=== PATIENT | female | born 1985 | race Caucasian/White ===

== ENCOUNTER → 2023-10-28 08:38 | Outpatient (REF) | payer BC, SELFPAY | LOC: RAD 08:38 | PROVIDERS: ATTENDING PHYSICIAN Internal Medicine Gastroenterology; FAMILY PHYSICIAN Family Medicine | DX: R10.12 Left upper quadrant pain (principal) | CPT/HCPCS: 76700 ==

== ENCOUNTER 2023-12-18 21:14 | Emergency (ER) | payer BC, SELFPAY ==
[2023-12-18 21:20] VITALS: BP 180/107
[2023-12-18 21:56] LABS: % Basophils 0.5 % (0-2); % Eosinophils 0.8 % (0-6); % Immature Granulocytes 0.7 % (0-0.5); % Lymphocytes 22.3 % (20.5-51.1); % Neutrophils 68.7 % (42.2-75.2); Absolute Basophils 0.1 10^3/uL (0-0.2); Absolute Eosinophils 0.1 10^3/uL (0-0.7); Absolute Immature Granulocytes 0.1 10^3/uL (0-0.05); Absolute Lymphocytes 3.7 10^3/uL (1.2-3.4); Absolute Monocytes 1.1 10^3/uL (0.1-0.6); Absolute Neutrophils 11.3 10^3/uL (1.4-6.5); Hemoglobin 13.1 g/dL (12.0-16.0); Mean Corp Hgb Conc. 33.6 g/dL (33.0-37.0); Mean Corpuscular Hgb 25.8 pg (27.0-31.0); Mean Corpuscular Volume 76.8 fL (81.0-99.0); Mean Platelet Volume 8.8 fL (7.4-10.4); Nucleated Red Blood Cells % 0 %; Platelet Count 367 10^3/uL (130-400); Red Blood Cell Count 5.08 10^6/uL (4.20-5.40); Red Cell Dist. Width 16.4 % (11.5-14.5); White Blood Cell Count 16.4 10^3/uL (4.8-10.8)
[2023-12-18 22:10] LABS: ALT (SGPT) 24 U/L (0-35); AST (SGOT) 23 U/L (14-36); Albumin 4.8 g/dl (3.5-5.0); Alkaline Phosphatase 89 U/L (38-126); Blood Urea Nitrogen 12 mg/dl (7-17); Calcium 10.2 mg/dl (8.4-10.2); Carbon Dioxide 24 mmol/L (22-30); Chloride 99 mmol/L (98-107); Glucose 122 mg/dl (70-99); Potassium 3.4 mmol/L (3.5-5.1); Sodium 137 mmol/L (135-145); Total Bilirubin 0.4 mg/dl (0.2-1.3); Total Protein 8.2 g/dl (6.3-8.2); eGFR > 60.00
[2023-12-18 22:20] LABS: Troponin I < 0.012 ng/ml
[2023-12-18 23:39] VITALS: BP 138/96
[2023-12-19] VITALS: BP 151/91
--- NOTE | 2023-12-19 00:08 | ED.GENMED ---
History of Present Illness
General
Chief Complaint: Blood Pressure Problem
Source: patient and family
Exam Limitations: none
Time Seen by Provider: 12/18/23 23:48
Nursing documentation reviewed up to this point in time: agreed with
Travel History
Have you had any contact with someone who has COVID-19?: No
Do you have any symptoms of coronavirus? Fever > 100 degrees, chills, cough, shortness of breath, sore throat, loss of taste or smell, muscle aches, or headache?: No
History of Present Illness
History of Present Illness:
Pleasant 38-year-old female that presents with hypertension. She follows with Dr. Burrell, cardiology and was recently started on chlorthalidone 1 week ago. Initially she was on 12.5 mg but she was told to increase the dose to the full 25 mg daily.
This morning she awakened with palpitations and a headache. She went to [facility] in the emergency department and states that she had a full workup including normal chest x-ray, normal troponin, normal D-dimer, and normal proBNP. She
states that she was given labetalol and discharged home. She got home and stated that her headache and hypertension symptoms have returned so she came to [facility]. Patient was able to show the testing results on her portal on her
iPhone. Upon arrival, patient states that her symptoms started to resolve. Patient denies chest pain or shortness of breath. Patient also reports that her white blood cell count has been chronically elevated.
Phy Exam
General Physical Exam
General Presentation: well appearing and no apparent distress
General Skin: warm and dry
General Habitus: normal
General Mental: alert
General Hydration: appears well hydrated
ENT Exam
ENT Exam: EOMI, pharynx normal, neck supple and normocephalic
Eye Exam
Eye Exam: PERRL, cornea clear and conjunctiva normal
Cardiovascular Exam
Cardiovascular Exam: regular rate/rhythm, no edema, no murmur and normal peripheral pulses
Pulmonary Exam
Pulmonary Exam: lungs clear, no respiratory distress, no rales, no crackles, no rhonchi, no stridor, no wheezing and no cough
Gastrointestinal Exam
Gastrointestinal Exam: normal bowel sounds, non tender, soft, no organomegaly, no pulsatile mass and non distended
Neurological Exam
Neurological Exam: alert, oriented x3, no motor deficits and speech normal
Musculoskeletal Exam
Musculoskeletal Exam: full ROM and no edema
Skin Exam
Skin Exam: normal color, warm/dry, no rash and no petechia
Psychiatric Exam
Psychiatric Exam: normal mood/affect
Course
Orders/Labs/Results
Orders:
Orders
12/18/23 21:31
Electrocardiogram (*1) Urgent
Reason for Study: Chest Pain
Other Reason for Exam: hypertension
Cardiology Consult: Carley Burrell
Chest [CR Chest - 2 Views ] Urgent
Comment:
Reason For Exam: chest pain cough
12/18/23 21:32
EKG- Treatment ONCE
12/18/23 21:51
Complete Blood Count/With Diff Urgent
Comprehensive Metabolic Panel Urgent
Troponin I Urgent
12/19/23 00:32
Urinalysis Reflex To Culture Urgent
Date Specimen was Collected: 12/19/23
Time Specimen was Collected: 00:30
Urine Microscopic Reflex Cult Urgent
Urine Culture Urgent
RAVI Source: U
Specimen Description:
Date Specimen was Collected: 12/19/23
Time Specimen was Collected: 00:30
Abnormal Lab Results
12/18/23 12/19/23
21:51 00:32
WBC 16.4 H 10^3/uL
(4.8-10.8)
MCV 76.8 L fL
(81.0-99.0)
MCH 25.8 L pg
(27.0-31.0)
RDW 16.4 H %
(11.5-14.5)
Abs Immat Gran (auto) 0.1 H 10^3/uL
(0-0.05)
Absolute Neuts (auto) 11.3 H 10^3/uL
(1.4-6.5)
Absolute Lymphs (auto) 3.7 H 10^3/uL
(1.2-3.4)
Absolute Monos (auto) 1.1 H 10^3/uL
(0.1-0.6)
Immature Gran % 0.7 H %
(0-0.5)
Potassium 3.4 L mmol/L
(3.5-5.1)
Creatinine 0.4 L mg/dL
(0.6-1.0)
Glucose 122 H mg/dl
(70-99)
Ur Occult Blood Reflex 4+ A
(Negative)
Leukocyte Esterase Rfl 1+ A
(Negative)
Urine RBC >100 A /HPF
(0-2)
Urine Albumin (Reflex) 1+ A
(Neg - Trace)
12/18/23 21:51
12/18/23 21:51
Vital Signs
Initial and Last Documented VS:
Initial Vital Signs
Temp Pulse Resp BP Pulse Ox
98.1 F 107 20 180/107 99
12/18/23 21:20 12/18/23 21:20 12/18/23 21:20 12/18/23 21:20 12/18/23 21:20
Last Documented Vital Signs
Temp Pulse Resp BP Pulse Ox
98.1 F 87 12 152/92 99
12/18/23 21:20 12/19/23 01:15 12/19/23 01:15 12/19/23 01:00 12/18/23 21:20
*Radiology
Radiology exam reviewed: radiology read reviewed (Reviewed from rin Dejesus. Chest x-ray taken here is negative)
*Pulse Oximetry
Patient hypoxic: no
*Critical Care Note
Total Time (30-74mins, 75-104mins- exclusive of procedures): Not Applicable
Update Note
Update Note:
Patient states that she is feeling better and wishes to be discharged. She will follow-up with Dr. Giang, cardiology tomorrow. She will continue her cardiac meds.
ED Attending Note
-
Portions of this chart may have been created with voice recognition software.� Occasional wrong word or��sound alike� substitutions may have occurred due to the inherent limitations of voice recognition software.
Discharge Plan
Departure
Patient Disposition: Home (Routine Discharge)
Date of Disposition: 12/19/23
Time of Disposition: 01:18
Patient with high blood pressure during this ER visit?: Yes
Condition: Good
Discharge Problem:
Hypertension
Instructions: High Blood Pressure (DC), BLOOD PRESSURE
Referrals:
Marj Foster MD [Family Provider] -
Carley Burrell MD [Active] -
Activity Restrictions/Additional Instructions:
It was a pleasure meeting you and taking part in your care. We hope for your continued healing and wellness.
Please read discharge instructions in their entirety. However, they are for general education and may not describe your exact diagnosis at discharge. Information on your ER visit and medical conditions were discussed with you along with appropriate
follow up information...
If indicated, please take your medications as instructed and indicated on discharge paperwork.
Please schedule a follow up appointment as directed. Call to schedule an appointment
Please return to the emergency department with ANY change in, persisting, or worsening of symptoms. If any of your symptoms do not improve, or persist, or become more severe within 6-12 hours, please return to the emergency department for further
care.
Please return to the emergency department if you develop a headache, neck pain/stiffness, fever greater than 100.4F, chest pain, shortness of breath, persistent nausea, vomiting, slurred speech, difficulty walking, numbness/tingling, weakness, signs
of infection or any other symptoms that are worrisome to you.
If you have any questions or concerns please do not hesitate to call the Hospital at or E-mail me directly at [email or web address]
Interventions
Interventions:
*Risk Screen - Suicide Last Done: 12/18/23 21:20
*General Assessment Last Done: 12/18/23 21:20
ED- Fall Risk Assessment Last Done: 12/18/23 21:20
*ED COVID-19 Vaccine History Last Done: 12/18/23 21:20
ED- Cardiac Assessment Last Done: 12/19/23 00:04
ED- Neurological Assessment Last Done: 12/19/23 00:04
ED- Pulmonary Assessment Last Done: 12/19/23 00:04
Discharge Date and Time
Print Language: CONGOLESE
[2023-12-19 00:30] VITALS: BP 145/83
[2023-12-19 00:47] LABS: Urine Albumin 1+ (Neg - Trace); Urine Bilirubin Negative (Negative); Urine Color Red; Urine Glucose Negative (Negative); Urine Ketone Negative (Negative); Urine Leukocyte 1+ (Negative); Urine Nitrite Negative (Negative); Urine Occult Blood 4+ (Negative); Urine Urobilinogen Negative (Neg - 1+)
[2023-12-19 00:49] LABS: Urine Character Cloudy (Clear)
[2023-12-19 01:00] VITALS: BP 152/92
[2023-12-19 01:11] LABS: Urine Amorphous Seen; Urine Red Blood Cell >100 /HPF (0-2); Urine Squamous Cell >30 /LPF (Few)
== END 2023-12-19 01:33 | disposition home or self-care (01) ==
LOC: EMR 21:14
PROVIDERS: Emergency Medicine; EMERGENCY PHYSICIAN Student in an Organized Health Care Education/Training Program; FAMILY PHYSICIAN Family Medicine
DX: I10 Essential (primary) hypertension (principal)
CPT/HCPCS: 99285; 71046; 80053; 81003; 81015; 84484; 85025; 87086; 93005

== ENCOUNTER 2023-12-22 11:04 | Emergency (ER) | payer BC, SELFPAY ==
[2023-12-22 11:11] VITALS: BP 149/105
[2023-12-22 11:30] LABS: % Basophils 0.6 % (0-2); % Eosinophils 0.7 % (0-6); % Immature Granulocytes 0.6 % (0-0.5); % Lymphocytes 21.1 % (20.5-51.1); % Monocytes 7.9 % (1.7-9.3); % Neutrophils 69.1 % (42.2-75.2); Absolute Basophils 0.1 10^3/uL (0-0.2); Absolute Eosinophils 0.1 10^3/uL (0-0.7); Absolute Immature Granulocytes 0.1 10^3/uL (0-0.05); Absolute Lymphocytes 2.7 10^3/uL (1.2-3.4); Absolute Neutrophils 8.7 10^3/uL (1.4-6.5); Hematocrit 41.3 % (37.0-47.0); Mean Corp Hgb Conc. 33.9 g/dL (33.0-37.0); Mean Corpuscular Hgb 25.8 pg (27.0-31.0); Mean Corpuscular Volume 76.1 fL (81.0-99.0); Mean Platelet Volume 9.1 fL (7.4-10.4); Nucleated Red Blood Cells % 0 %; Platelet Count 355 10^3/uL (130-400); Red Blood Cell Count 5.43 10^6/uL (4.20-5.40); Red Cell Dist. Width 15.6 % (11.5-14.5); White Blood Cell Count 12.6 10^3/uL (4.8-10.8)
[2023-12-22 11:41] LABS: HCG, Serum Qualitative Screen Negative
--- NOTE | 2023-12-22 12:50 | ED.GENMED ---
History of Present Illness
<Kimberley Quijano PA-C - Last Filed: 12/25/23 00:05>
General
Chief Complaint: Abdominal Symptoms
Source: patient
Exam Limitations: none
Time Seen by Provider: 12/22/23 12:07
Nursing documentation reviewed up to this point in time: agreed with
Travel History
Have you had any contact with someone who has COVID-19?: No
Do you have any symptoms of coronavirus? Fever > 100 degrees, chills, cough, shortness of breath, sore throat, loss of taste or smell, muscle aches, or headache?: No
History of Present Illness
History of Present Illness:
Patient is a 38-year-old female with history hypertension presenting for evaluation of upper abdominal pain. Patient states symptoms started about 4 to 5 days ago and have been essentially constant since. She endorses associated nausea, anorexia,
diarrhea. No vomiting, fever, chills. Pain is located in the epigastric abdominal region/right upper quadrant with possibly some radiation to the back. Patient states pain is worse after eating and with movement. Patient denies any urinary
symptoms, chest pain, shortness of breath.
Patient has been diagnosed with a dental infection by her dentist instructed to start a course of clindamycin today. She is scheduled to have dental work done in the next few weeks. She has been having headaches over the past few weeks which she
has been attributing to dental infection
Patient was recently seen in our emergency department last week for elevated blood pressure readings. She did recently start chlorthalidone.
Phy Exam
<Kimberley Quijano PA-C - Last Filed: 12/25/23 00:05>
Physical Exam
Physical Exam:
General: Anxious appearing, nontoxic appearing
Vitals: Hypertensive, tachycardic, otherwise vital signs stable; afebrile
HEENT: Atraumatic, normocephalic; protecting airway, uvula midline
Neck: appears supple, no meningeal signs
CV: Regular rate and rhythm, heart sounds normal, no evidence of cyanosis
Resp: No evidence of respiratory distress, lungs clear bilaterally
Abd: Soft, tender in epigastrium right upper quadrant without rebound or guarding, non-distended; no CVA tenderness
Extremities: No deformities, no evidence of cyanosis or edema
Neuro: alert and oriented x 3; grossly intact
Psych: Anxious, somewhat tearful
Skin: Intact no rashes
Course
<Kimberley Quijano PA-C - Last Filed: 12/25/23 00:05>
Orders/Labs/Results
Orders:
Orders
12/22/23 11:13
Electrocardiogram (*1) Urgent
Reason for Study: Abdominal Pain
EKG- Treatment ONCE
Test Result ONCE
12/22/23 11:20
Complete Blood Count/With Diff Urgent
Comprehensive Metabolic Panel Urgent
HCG, Serum Qualitative Screen Urgent
Lipase Urgent
12/22/23 12:44
0.9% Sodium Chloride 1000 ml [Nss] 1,000 ml IV BOLUS
US Abdomen Complete/Upper Urgent
Comment:
Reason For Exam: RUQ/epigastric abdominal pain, nausea
12/22/23 14:01
Ketorolac [Toradol] 15 mg IV NOW STA
12/22/23 15:12
Ondansetron Injectable [Zofran] 4 mg IV NOW STA
12/22/23 17:12
Acetaminophen [Tylenol] 650 mg PO NOW STA
Abnormal Lab Results
12/22/23
11:20
WBC 12.6 H 10^3/uL
(4.8-10.8)
RBC 5.43 H 10^6/uL
(4.20-5.40)
MCV 76.1 L fL
(81.0-99.0)
MCH 25.8 L pg
(27.0-31.0)
RDW 15.6 H %
(11.5-14.5)
Abs Immat Gran (auto) 0.1 H 10^3/uL
(0-0.05)
Absolute Neuts (auto) 8.7 H 10^3/uL
(1.4-6.5)
Absolute Monos (auto) 1.0 H 10^3/uL
(0.1-0.6)
Immature Gran % 0.6 H %
(0-0.5)
BUN 19 H mg/dl
(7-17)
Creatinine 0.5 L mg/dL
(0.6-1.0)
Glucose 120 H mg/dl
(70-99)
Calcium 10.6 H mg/dl
(8.4-10.2)
Albumin 5.1 H g/dl
(3.5-5.0)
12/22/23 11:20
12/22/23 11:20
Vital Signs
Initial and Last Documented VS:
Initial Vital Signs
Temp Pulse Resp BP Pulse Ox
98.7 F 110 16 149/105 100
12/22/23 11:11 12/22/23 11:11 12/22/23 11:11 12/22/23 11:11 12/22/23 11:11
Last Documented Vital Signs
Temp Pulse Resp BP Pulse Ox
98.7 F 96 18 148/79 96
12/22/23 11:11 12/22/23 15:55 12/22/23 15:55 12/22/23 15:55 12/22/23 15:55
Davidlt;Xavier Oleary DO - Last Filed: 12/22/23 20:00>
Orders/Labs/Results
Orders:
Orders
12/22/23 11:13
Electrocardiogram (*1) Urgent
Reason for Study: Abdominal Pain
EKG- Treatment ONCE
Test Result ONCE
12/22/23 11:20
Complete Blood Count/With Diff Urgent
Comprehensive Metabolic Panel Urgent
HCG, Serum Qualitative Screen Urgent
Lipase Urgent
12/22/23 12:44
0.9% Sodium Chloride 1000 ml [Nss] 1,000 ml IV BOLUS
US Abdomen Complete/Upper Urgent
Comment:
Reason For Exam: RUQ/epigastric abdominal pain, nausea
12/22/23 14:01
Ketorolac [Toradol] 15 mg IV NOW STA
12/22/23 15:12
Ondansetron Injectable [Zofran] 4 mg IV NOW STA
12/22/23 17:12
Acetaminophen [Tylenol] 650 mg PO NOW STA
Abnormal Lab Results
12/22/23
11:20
WBC 12.6 H 10^3/uL
(4.8-10.8)
RBC 5.43 H 10^6/uL
(4.20-5.40)
MCV 76.1 L fL
(81.0-99.0)
MCH 25.8 L pg
(27.0-31.0)
RDW 15.6 H %
(11.5-14.5)
Abs Immat Gran (auto) 0.1 H 10^3/uL
(0-0.05)
Absolute Neuts (auto) 8.7 H 10^3/uL
(1.4-6.5)
Absolute Monos (auto) 1.0 H 10^3/uL
(0.1-0.6)
Immature Gran % 0.6 H %
(0-0.5)
BUN 19 H mg/dl
(7-17)
Creatinine 0.5 L mg/dL
(0.6-1.0)
Glucose 120 H mg/dl
(70-99)
Calcium 10.6 H mg/dl
(8.4-10.2)
Albumin 5.1 H g/dl
(3.5-5.0)
12/22/23 11:20
12/22/23 11:20
Vital Signs
Initial and Last Documented VS:
Initial Vital Signs
Temp Pulse Resp BP Pulse Ox
98.7 F 110 16 149/105 100
12/22/23 11:11 12/22/23 11:11 12/22/23 11:11 12/22/23 11:11 12/22/23 11:11
Last Documented Vital Signs
Temp Pulse Resp BP Pulse Ox
98.7 F 96 18 148/79 96
12/22/23 11:11 12/22/23 15:55 12/22/23 15:55 12/22/23 15:55 12/22/23 15:55
<Kimberley Quijano PA-C - Last Filed: 12/25/23 00:05>
MDM/Problems Addressed
Differential Diagnosis Includes:
Not limited to: Cholelithiasis, cholecystitis, choledocholithiasis, pancreatitis, gastritis, GERD, muscular strain
MDM/Problems Addressed:
Patient is a 38 year old female presenting for evaluation of persistent postprandial upper abdominal pain with associated nausea. Patient is scheduled for upper endoscopy next week. Patient has had negative US in the past. Patient mildly
hypertensive and tachycardic -although does appear somewhat anxious. Exam as above. Significant abdominal tenderness in upper abdomen. Labs obtained in triage are without any clinical significant abnormalities, other than mild, nonspecific
leukocytosis. Given persistence / progressive symptoms- will check US to ensure no gallbladder etiology. Toradol for pain, zofran, IVF.
US without any evidence of gallstones or acute gallbladder disease. Patient did have some improvement in pain after Toradol.
Workup here has been unremarkable. Patient is stable. Given scheduled GI follow-up - will discharge with return precautions. Possible that patient has ulcer or gastritis. Will have endoscopy performed outpatient. Patient comfortable with plan. All
questions answered.
Chronic conditions affecting care:
HTN, anxiety, Diabetes
Acute Exacerbation and/or Progression of Chronic Illness:
Acutely hypertensive
<Kimberley Quijano PA-C - Last Filed: 12/25/23 00:05>
*Radiology
Radiology exam reviewed: radiology read reviewed
*Pulse Oximetry
Patient hypoxic: no
*EKG
Interpreted by ED Provider?: Yes
EKG Intrepretation Date: 12/22/23
Interpretation: normal
Comparison EKG: changes noted
Heart Rate: 93
Rate: normal
Rhythm: sinus
Ischemia: no ischemia
*Interactive Marketing Strategist Interpretation
Rate: Interactive Marketing Strategist- N/A
*Critical Care Note
Total Time (30-74mins, 75-104mins- exclusive of procedures): Not Applicable
ED Attending Note
<Kimberley Quijano PA-C - Last Filed: 12/25/23 00:05>
-
Portions of this chart may have been created with voice recognition software.� Occasional wrong word or��sound alike� substitutions may have occurred due to the inherent limitations of voice recognition software.
<Xavier Oleary DO - Last Filed: 12/22/23 20:00>
ED Attending Note
Patient seen and examined by attending physician: Yes
I performed the substantive portion of visit, reviewed & personally made and approve the management plan that is documented in note by myself or LORNA.: Yes
ED Attending Note:
Patient is a 38-year-old female who presents to the emergency department with upper abdominal pain. Patient was seen in October for upper abdominal pain at that time and an ultrasound which was unremarkable. Patient continues to have pain and
seems to be mostly with eating. Patient describes the pain is in the middle of her upper abdomen. Patient's nauseous with it. Patient denies any melena or hematochezia. 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 Patient saw an oral surgeon today for an infected tooth and was placed on clindamycin and her oral surgeon told her to take a nonsteroidal. Patient denies any weight loss. On physical exam patient appears to be in mild
distress and is obese. Heart is regular and lungs are clear. Patient is quite tender in the mid epigastric region with mild right upper quadrant tenderness without guarding or rebound. Patient has good bowel sounds. Patient's workup is
essentially negative. Given the postprandial nature of the pain believe the patient has gastritis or possible ulcer without hemorrhage. Patient is already on meds for stomach. Will add Carafate and Zofran. Depending on the findings of her
endoscopy she may need a HIDA scan to further evaluate the gallbladder.
Discharge Plan
Departure
Patient Disposition: Home (Routine Discharge)
Date of Disposition: 12/22/23
Time of Disposition: 17:13
Patient with high blood pressure during this ER visit?: Yes
Condition: Good
Covid-19: Not Applicable
Discharge Problem:
Abdominal pain, Nausea
Instructions: Abdominal Pain, Adult ED
Prescriptions:
New
ondansetron 4 mg tablet,disintegrating
4 mg PO Q8H PRN (Reason: nausea and vomiting) Qty: 10 0RF
sucralfate [Carafate] 1 gram tablet
1 g PO QID 14 Days Qty: 56 0RF
oxycodone 5 mg tablet
5 mg PO Q6H PRN (Reason: Pain) Qty: 4 0RF
Referrals:
Marj Foster MD [Family Provider] -
Becca Huizar MD [Active] - Follow up in 1 week
Activity Restrictions/Additional Instructions:
- Return to the emergency department for any high fevers, chest pain, shortness of breath, persistent nausea/vomiting, severe abdominal pain, coughing/vomiting blood, signs of severe dehydration, worsening in current symptoms, or any other concerns
-Medications have been sent to your pharmacy. You can take these as instructed
-You can take Tylenol as needed for minor discomfort. You can use oxycodone as needed for severe, intractable pain. This may cause drowsiness and you should not take prior to driving.
-As discussed�you should keep your appointment with your retail sales manager for your endoscopy next week. You should follow-up with GI for further evaluation/manage
Interventions
Interventions:
*Risk Screen - Suicide Last Done: 12/22/23 13:36
*General Assessment Last Done: 12/22/23 13:36
*Neglect/Abuse Screening Last Done: 12/22/23 13:36
ED- Fall Risk Assessment Last Done: 12/22/23 13:36
*ED COVID-19 Vaccine History Last Done: 12/22/23 11:11
*Nursing Disposition Last Done: 12/22/23 17:45
NM-[id number] Assessment Last Done: 12/22/23 13:36
Discharge Date and Time
Discharge Date/Time: 12/22/23 17:45
Print Language: FRENCH
[2023-12-22] MEDS: NSS 1000 IV (13:01)
[2023-12-22 13:02] LABS: ALT (SGPT) 26 U/L (0-35); AST (SGOT) 23 U/L (14-36); Albumin 5.1 g/dl (3.5-5.0); Alkaline Phosphatase 85 U/L (38-126); Blood Urea Nitrogen 19 mg/dl (7-17); Calcium 10.6 mg/dl (8.4-10.2); Carbon Dioxide 22 mmol/L (22-30); Chloride 99 mmol/L (98-107); Glucose 120 mg/dl (70-99); Lipase 146 U/L (23-300); Potassium 3.5 mmol/L (3.5-5.1); Sodium 136 mmol/L (135-145); Total Bilirubin 0.3 mg/dl (0.2-1.3); Total Protein 8.2 g/dl (6.3-8.2); eGFR > 60.00
[2023-12-22] MEDS: TORADOL 15 MG IV (14:05)
[2023-12-22 14:06] VITALS: BP 152/83
[2023-12-22] MEDS: ZOFRAN 4 MG IV (15:16)
[2023-12-22 15:55] VITALS: BP 148/79
[2023-12-22] MEDS: TYLENOL 650 MG PO (17:27)
== END 2023-12-22 17:45 | disposition home or self-care (01) ==
LOC: EMR 11:04
PROVIDERS: Emergency Medicine; EMERGENCY PHYSICIAN Emergency Medicine; FAMILY PHYSICIAN Family Medicine
DX: R10.10 Upper abdominal pain, unspecified (principal); R11.0 Nausea; R51.9 Headache, unspecified; R19.7 Diarrhea, unspecified; I10 Essential (primary) hypertension
CPT/HCPCS: 99285; 96374; 96375; 76700; 80053; 83690; 84703; 85025; 93005

== ENCOUNTER 2023-12-25 20:16 | Emergency (ER) | payer BC, SELFPAY ==
[2023-12-25 20:20] VITALS: BP 192/104
--- NOTE | 2023-12-25 20:58 | ED.GENMED ---
History of Present Illness
General
Chief Complaint: Abdominal Pain
Source: patient
Exam Limitations: none
Time Seen by Provider: 12/25/23 20:32
Travel History
Have you had any contact with someone who has COVID-19?: No
Do you have any symptoms of coronavirus? Fever > 100 degrees, chills, cough, shortness of breath, sore throat, loss of taste or smell, muscle aches, or headache?: No
History of Present Illness
History of Present Illness:
This is a 38 year old female that come in with c/o abd pain. States that she was here on Friday and given medication that she did not take. States that she was trying to get in touch with her GI specialist before taking any medication as she is
scheduled for a liver scan in there office this week. State that she never responded. State that Friday she felt some better. Friday she was better and Today she started again with pain. States that the pain is in the upper abd and goes around
to the back on the left. States that she can't eat or drink as this increases her pain. States that she is SOB with the pain. nauseated, had diarrhea, headache and dizziness with the pain. Denies any fever, chills, chest pain, vomiting, urinary
burning.
Past History
Past History
ED Past Medical History: GERD, HTN, NIDDM and Psychiatric (Anxiety, Depression)
ED Past Surgical History: Appendectomy, and Other (Myringotomy tubes)
Social History
Tobacco: Former smoker
Alcohol: None
Personal:
Living: with family
Review of Systems
Review of Systems
All Other Systems: ROS reviewed and negative except as documented in HPI and ROS
Constitutional: Reports no symptoms; Denies fever or chills
EENT: Reports no symptoms
Respiratory: Reports trouble breathing (with pain); Denies cough
Cardiac: Denies chest pain
ABD/GI: Reports abdominal pain, nausea and diarrhea; Denies vomiting
: Reports no symptoms; Denies dysuria, frequency or urgency
Musculoskeletal: Reports no symptoms
Skin: Reports no symptoms
Neurological: Reports dizzy (with the pain); Denies headache
Psychiatric: Reports no symptoms
Phy Exam
General Physical Exam
General Presentation: mild distress
General age: appears stated age
General Skin: warm and dry
General Habitus: normal
General Mental: alert and tearful
General Hydration: appears well hydrated
ENT Exam
ENT Exam: TM's normal, pharynx normal and neck supple
Eye Exam
Eye Exam: EOMI
Cardiovascular Exam
Cardiovascular Exam: regular rate/rhythm, no edema, no murmur and normal peripheral pulses
Pulmonary Exam
Pulmonary Exam: lungs clear, no respiratory distress, no rales, chest non tender, no crackles, no rhonchi, no wheezing and no cough
Gastrointestinal Exam
Gastrointestinal Exam: normal bowel sounds, soft, no organomegaly, no pulsatile mass, non distended and tender (Left upper abd, Epigastric area with palpation)
Musculoskeletal Exam
Musculoskeletal Exam: full ROM and no edema
Skin Exam
Skin Exam: normal color, warm/dry, no rash and no petechia
Psychiatric Exam
Psychiatric Exam: normal mood/affect
Course
Orders/Labs/Results
Orders:
Orders
12/25/23 20:56
CT Abd/pelvis W Iv Cont Urgent
Comment:
Reason For Exam: Left sided and upper abd pain
Pantoprazole [Protonix IV] 40 mg IV NOW STA
Sucralfate Suspension [Carafate Suspension] 1 gm PO NOW STA
Test Result ONCE
12/25/23 20:57
0.9% Sodium Chloride 500 ml [Nss] 500 ml IV BOLUS
Ketorolac [Toradol] 30 mg IV NOW STA
12/25/23 21:19
Complete Blood Count/With Diff Urgent
Comprehensive Metabolic Panel Urgent
HCG, Serum Qualitative Screen Urgent
Lipase Urgent
Abnormal Lab Results
12/25/23
21:19
WBC 14.8 H 10^3/uL
(4.8-10.8)
MCV 77.6 L fL
(81.0-99.0)
MCH 26.1 L pg
(27.0-31.0)
RDW 15.3 H %
(11.5-14.5)
Abs Immat Gran (auto) 0.1 H 10^3/uL
(0-0.05)
Absolute Neuts (auto) 9.3 H 10^3/uL
(1.4-6.5)
Absolute Lymphs (auto) 4.0 H 10^3/uL
(1.2-3.4)
Absolute Monos (auto) 1.2 H 10^3/uL
(0.1-0.6)
Sodium 134 L mmol/L
(135-145)
Chloride 92 L mmol/L
(98-107)
Creatinine 0.5 L mg/dL
(0.6-1.0)
Glucose 107 H mg/dl
(70-99)
12/25/23 21:19
12/25/23 21:19
Leukocytosis, Chloride slightly low. Glucose nonfasting. Lipase normal at 206. HCG negative.
Vital Signs
Initial and Last Documented VS:
Initial Vital Signs
Temp Pulse Resp BP Pulse Ox
98.2 F 98 20 192/104 100
12/25/23 20:20 12/25/23 20:20 12/25/23 20:20 12/25/23 20:20 12/25/23 20:20
Last Documented Vital Signs
Temp Pulse Resp BP Pulse Ox
98.2 F 98 20 192/104 100
12/25/23 20:20 12/25/23 20:20 12/25/23 20:20 12/25/23 20:20 12/25/23 20:20
MDM/Problems Addressed
Differential Diagnosis Includes:
Gastritis, Ulcer disease, colitis, Diverticulitis
MDM/Problems Addressed:
This is a 38 year old female that comes in with c/o upper abd pain. States that she was here on Friday and did not take any of the medication that she was given as she wanted to speak with her GI specialist first. Patient was unable to get in touch
with her. Comes in tonight with increased pain.
Will get labs and CT scan.
Back to see patient. Explained that her WBC are elevated and she is anemia. Patient CT if negative for any acute process. This is most likely a Gastritis or a duodenal ulcer. Will place patient on Protonix and carafate. patient to stay away form
Caffeine. Follow up with the PCP and the Gi specialist. Return with any concern.
Chronic conditions affecting care:
GERD
Acute Exacerbation and/or Progression of Chronic Illness:
GERD
*Radiology
Radiology exam reviewed: radiology read reviewed (CT scan-Moderate diffuse hepatic steatosis. Mild hepatosplenomegaly. Mild diverticulosis in the descending and sigmoid colon. Moderate -sized central disc herniation at L5/S1)
*Pulse Oximetry
Patient hypoxic: no
*EKG
Interpreted by ED Provider?: NA
Rate: EKG- N/A
*Instructor Nurse Interpretation
Rate: Instructor Nurse- N/A
*Critical Care Note
Total Time (30-74mins, 75-104mins- exclusive of procedures): Not Applicable
ED Attending Note
-
Portions of this chart may have been created with voice recognition software.� Occasional wrong word or��sound alike� substitutions may have occurred due to the inherent limitations of voice recognition software.
Discharge Plan
Departure
Patient Disposition: Home (Routine Discharge)
Date of Disposition: 12/25/23
Time of Disposition: 23:08
Patient with high blood pressure during this ER visit?: Yes
Condition: Good
Covid-19: Not Applicable
Discharge Problem:
Gastritis
Instructions: Gastritis (DC), Ulcer and Gastritis Diet, BLOOD PRESSURE
Prescriptions:
New
pantoprazole [Protonix] 40 mg tablet,delayed release (DR/EC)
40 mg PO DAILY Qty: 30 0RF
sucralfate [Carafate] 1 gram tablet
1 g PO ACHS Qty: 40 0RF
Rx Instructions:
Dissolve in 10ml of water. 30min-1hour before meals and HS
No Action
chlorthalidone 25 mg Tablet
25 mg PO DAILY
dexlansoprazole 60 mg Capsule,Biphase Delayed Releas
60 mg PO BID
Referrals:
Benji Godlman DO [Family Provider] - Call in 1-3 days for appt
Activity Restrictions/Additional Instructions:
As discussed, your blood work shows you are a little anemia. Please increase your water intake daily to 8-8oz glasses daily. You have had 2 prescriptions sent to your Pharmacy. Please take the Protonix daily. The Carafate is 1gm 30min to 1 hour
before meals and again at bedtime. Please dissolve the Carafate in 2 tsp of water and drink. Follow up with the Gi specialist for further evaluation. IF YOU HAVE ANY OTHER CONCERNS PLEASE RETURN TO THE EMERGENCY ROOM.
Interventions
Interventions:
*General Assessment Last Done: 12/25/23 20:20
*ED COVID-19 Vaccine History Last Done: 12/25/23 20:20
IQ-Mjqqch-Vningzccfk Assessment Last Done: 12/25/23 20:35
Discharge Date and Time
Print Language: MEXICAN
[2023-12-25] MEDS: CARAFATE SUSPENSION 1 GM PO (21:12)
[2023-12-25] MEDS: NSS 500 IV (21:19)
[2023-12-25] MEDS: TORADOL 30 MG IV (21:20)
[2023-12-25] MEDS: PROTONIX IV 40 MG IV (21:20)
[2023-12-25 21:34] LABS: % Basophils 0.5 % (0-2); % Immature Granulocytes 0.4 % (0-0.5); % Lymphocytes 27.2 % (20.5-51.1); % Monocytes 8.4 % (1.7-9.3); % Neutrophils 62.5 % (42.2-75.2); Absolute Basophils 0.1 10^3/uL (0-0.2); Absolute Eosinophils 0.2 10^3/uL (0-0.7); Absolute Immature Granulocytes 0.1 10^3/uL (0-0.05); Absolute Monocytes 1.2 10^3/uL (0.1-0.6); Absolute Neutrophils 9.3 10^3/uL (1.4-6.5); Hematocrit 39.5 % (37.0-47.0); Hemoglobin 13.3 g/dL (12.0-16.0); Mean Corp Hgb Conc. 33.7 g/dL (33.0-37.0); Mean Corpuscular Hgb 26.1 pg (27.0-31.0); Mean Corpuscular Volume 77.6 fL (81.0-99.0); Mean Platelet Volume 9.3 fL (7.4-10.4); Nucleated Red Blood Cells % 0 %; Platelet Count 353 10^3/uL (130-400); Red Blood Cell Count 5.09 10^6/uL (4.20-5.40); Red Cell Dist. Width 15.3 % (11.5-14.5); White Blood Cell Count 14.8 10^3/uL (4.8-10.8)
[2023-12-25 21:47] LABS: HCG, Serum Qualitative Screen Negative
[2023-12-25 21:54] LABS: ALT (SGPT) 24 U/L (0-35); AST (SGOT) 31 U/L (14-36); Alkaline Phosphatase 82 U/L (38-126); Blood Urea Nitrogen 15 mg/dl (7-17); Carbon Dioxide 29 mmol/L (22-30); Chloride 92 mmol/L (98-107); Glucose 107 mg/dl (70-99); Lipase 206 U/L (23-300); Potassium 3.5 mmol/L (3.5-5.1); Sodium 134 mmol/L (135-145); Total Bilirubin 0.5 mg/dl (0.2-1.3); Total Protein 8.1 g/dl (6.3-8.2); eGFR > 60.00
[2023-12-25 23:34] VITALS: BP 141/83
== END 2023-12-25 23:36 | disposition home or self-care (01) ==
LOC: EMR 20:16
PROVIDERS: Clinical Nurse Specialist Family Health; EMERGENCY PHYSICIAN Emergency Medicine; FAMILY PHYSICIAN Family Medicine
DX: K29.70 Gastritis, unspecified, without bleeding (principal); I10 Essential (primary) hypertension; K21.9 Gastro-esophageal reflux disease without esophagitis; Z87.891 Personal history of nicotine dependence
CPT/HCPCS: 99285; 96374; 96375; 96361; 74177; 80053; 83690; 84703; 85025; Q9967

== ENCOUNTER 2023-12-29 11:10 | Emergency (ER) | payer BC, SELFPAY ==
[2023-12-29 11:25] VITALS: BP 126/86
[2023-12-29 11:55] LABS: % Basophils 0.4 % (0-2); % Eosinophils 0.8 % (0-6); % Immature Granulocytes 0.5 % (0-0.5); % Lymphocytes 19.4 % (20.5-51.1); % Monocytes 6.3 % (1.7-9.3); % Neutrophils 72.6 % (42.2-75.2); Absolute Basophils 0.1 10^3/uL (0-0.2); Absolute Eosinophils 0.1 10^3/uL (0-0.7); Absolute Immature Granulocytes 0.1 10^3/uL (0-0.05); Absolute Lymphocytes 2.5 10^3/uL (1.2-3.4); Absolute Monocytes 0.8 10^3/uL (0.1-0.6); Absolute Neutrophils 9.5 10^3/uL (1.4-6.5); Hematocrit 40.4 % (37.0-47.0); Hemoglobin 13.3 g/dL (12.0-16.0); Mean Corp Hgb Conc. 32.9 g/dL (33.0-37.0); Mean Corpuscular Volume 78.9 fL (81.0-99.0); Mean Platelet Volume 9.5 fL (7.4-10.4); Nucleated Red Blood Cells % 0 %; Platelet Count 359 10^3/uL (130-400); Red Blood Cell Count 5.12 10^6/uL (4.20-5.40); Red Cell Dist. Width 15.3 % (11.5-14.5); White Blood Cell Count 13.1 10^3/uL (4.8-10.8)
[2023-12-29 12:09] LABS: ALT (SGPT) 25 U/L (0-35); AST (SGOT) 22 U/L (14-36); Albumin 4.7 g/dl (3.5-5.0); Alkaline Phosphatase 82 U/L (38-126); Blood Urea Nitrogen 17 mg/dl (7-17); Calcium 9.9 mg/dl (8.4-10.2); Carbon Dioxide 28 mmol/L (22-30); Chloride 96 mmol/L (98-107); Glucose 124 mg/dl (70-99); Potassium 3.6 mmol/L (3.5-5.1); Sodium 136 mmol/L (135-145); Total Bilirubin 0.4 mg/dl (0.2-1.3); Total Protein 7.7 g/dl (6.3-8.2); eGFR > 60.00
[2023-12-29 12:20] LABS: Troponin I < 0.012 ng/ml
[2023-12-29 13:05] VITALS: BMI 43.3
--- NOTE | 2023-12-29 13:44 | ED.GENMED ---
History of Present Illness
General
Chief Complaint: Heart Rate Problem
Source: patient
Time Seen by Provider: 12/29/23 12:59
Travel History
Have you had any contact with someone who has COVID-19?: No
Do you have any symptoms of coronavirus? Fever > 100 degrees, chills, cough, shortness of breath, sore throat, loss of taste or smell, muscle aches, or headache?: No
History of Present Illness
History of Present Illness:
This patient is a 38-year-old female presents emergency complaints of intermittent palpitations that initially started Friday evening as intermittent and not very often, and now essentially constant described as a 'fluttering'. She notes slight
lightheadedness with this but no syncope, chest pain or pressure, dyspnea, vomiting, new nausea, fever, chills, back pain, neck pain, headache, or other complaints. Patient states that she has been suffering with recent 'GI issues' and is due to
get an endoscopy tomorrow. She worried that her sensation of palpitations may impact that. She did start a new 'prehypertension' medication, and increase the dose about a week ago. She spoke with her cardiology office today and was referred to
the emergency department
Past History
Past History
ED Past Medical History: GERD, HTN, NIDDM and Psychiatric (Anxiety, Depression)
ED Past Surgical History: Appendectomy, and Other (Myringotomy tubes)
Social History
Tobacco: Former smoker
Alcohol: None
Drug: None
Personal:
Living: with family
Phy Exam
Physical Exam
Physical Exam:
GENERAL: Alert , in no apparent distress
EYE: pupils equal and reactive
NECK: Supple, no significant adenopathy.
ENT: o/p clr, mmm.
CARDIAC: Regular rate and rhythm .
LUNGS: Clear breath sounds bilaterally, no acute respiratory distress, no wheezes/rales/rhonchi
ABDOMEN: Soft, without focal tenderness, no r/g, no cvat
NEUROLOGICAL: Alert and oriented, no focal neuro deficits
SKIN: Warm and dry, skin intact.
MUSCULOSKELETAL: No edema, well perfused.
PSYCH: Normal and appropriate interaction but anxious.
Course
Orders/Labs/Results
Orders:
Orders
12/29/23
Electrocardiogram (*1) Stat
Reason for Study: Chest Pain
Comment: DONE NO ORDER ENTERED
12/29/23 11:11
ECG [Electrocardiogram (*1)] Urgent
Reason for Study: Chest Pain
EKG- Treatment ONCE
12/29/23 11:32
Complete Blood Count/With Diff Urgent
Comprehensive Metabolic Panel Urgent
TSH Urgent
Comment: ADD ON
Troponin I Urgent
12/29/23 13:47
Add On- LAB Urgent
Tests Added?: tsh
12/29/23 14:53
Lorazepam [Ativan] 2 mg .ROUTE .STK-MED ONE
12/29/23 14:56
Lorazepam [Ativan] 0.5 mg IV NOW STA
12/29/23 15:06
D-Dimer Urgent
Abnormal Lab Results
12/29/23
11:32
WBC 13.1 H 10^3/uL
(4.8-10.8)
MCV 78.9 L fL
(81.0-99.0)
MCH 26.0 L pg
(27.0-31.0)
MCHC 32.9 L g/dL
(33.0-37.0)
RDW 15.3 H %
(11.5-14.5)
Abs Immat Gran (auto) 0.1 H 10^3/uL
(0-0.05)
Absolute Neuts (auto) 9.5 H 10^3/uL
(1.4-6.5)
Absolute Monos (auto) 0.8 H 10^3/uL
(0.1-0.6)
Lymphocytes % 19.4 L %
(20.5-51.1)
Chloride 96 L mmol/L
(98-107)
Creatinine 0.5 L mg/dL
(0.6-1.0)
Glucose 124 H mg/dl
(70-99)
12/29/23 11:32
12/29/23 11:32
Vital Signs
Initial and Last Documented VS:
Initial Vital Signs
Temp Pulse Resp BP Pulse Ox
98 F 91 16 126/86 100
12/29/23 11:25 12/29/23 11:25 12/29/23 11:25 12/29/23 11:25 12/29/23 11:25
Last Documented Vital Signs
Temp Pulse Resp BP Pulse Ox
98 F 91 10 132/74 89
12/29/23 11:25 12/29/23 16:15 12/29/23 16:15 12/29/23 16:37 12/29/23 16:15
*Critical Care Note
Total Time (30-74mins, 75-104mins- exclusive of procedures): Not Applicable
Update Note
Update Note:
Patient presents to the Emergency Department with
Number and Complexity of Problems Addressed at the Encounter
� Chronic conditions affecting care:
� Acute Exacerbation and/or Progression of Chronic Illness:
� Differential Diagnosis includes:
Amount and/or Complexity of Data to be Reviewed and Analyzed
� I performed an independent evaluation of and my interpretation is:
EKG: Read by me, normal sinus rhythm, normal rate, normal axis, no acute ischemia
CT:
Xrays:
Laboratory Studies: Nonspecific mild leukocytosis, mild glucose elevation
Other:
� Review of other/old records reveals:
� Clinical information was obtained by an independent historian:
� Prescriptions/Medications Considered but not given:
� Further testing considered but not performed:
Risk of Complications and/or Morbidity or Mortality of Patient Management
� Social determinants of health affecting care:
� Discussion with other providers (PCP, Hospitalists, Consultants, etc):
� Escalation of care including admission/observation vs risk of discharge considered: Patient with normal heart rate consistently here in the emergency department, vitals stable, no chest pain or ECG changes to suggest ACS.
Thyroid study pending. Will allow for discharge with close follow-up, and patient will follow-up on TSH level.
While patient here, she had an episode of tachycardia, ECG looks consistent with sinus tachycardia/atrial tachycardia. Cardiology is on consult. As per their [place] text communication with me, patient is able to proceed with her EGD tomorrow and
will be prescribed as needed Cardizem 120 mg ER for palpitations and she is going to have a monitor put on after her EGD tomorrow. This was also communicated to GI.
ED Attending Note
-
Portions of this chart may have been created with voice recognition software.� Occasional wrong word or��sound alike� substitutions may have occurred due to the inherent limitations of voice recognition software.
Discharge Plan
Departure
Patient Disposition: Home (Routine Discharge)
Date of Disposition: 12/29/23
Time of Disposition: 13:49
Patient with high blood pressure during this ER visit?: Yes
Condition: Good
Discharge Problem:
Palpitations
Instructions: Palpitations (DC), BLOOD PRESSURE
Prescriptions:
No Action
chlorthalidone 25 mg Tablet
25 mg PO DAILY
dexlansoprazole 60 mg Capsule,Biphase Delayed Releas
60 mg PO BID
pantoprazole [Protonix] 40 mg tablet,delayed release (DR/EC)
40 mg PO DAILY Qty: 30 0RF
sucralfate [Carafate] 1 gram tablet
1 g PO ACHS Qty: 40 0RF
Rx Instructions:
Dissolve in 10ml of water. 30min-1hour before meals and HS
Referrals:
Benji Goldman DO [Family Provider] -
Activity Restrictions/Additional Instructions:
PLEASE FOLLOW-UP WITH YOUR FIXED INCOME ANALYST THIS WEEK. IF YOU DEVELOP FEVER, CHEST PAIN, SHORTNESS OF BREATH, VOMITING, PERSISTENT OR NEW PALPITATIONS, ANY DIZZINESS, OR OTHER WORRISOME SIGNS, PLEASE RETURN TO THE ER IMMEDIATELY.
Interventions
Interventions:
*Risk Screen - Suicide Last Done: 12/29/23 11:23
*General Assessment Last Done: 12/29/23 11:23
*Neglect/Abuse Screening Last Done: 12/29/23 11:23
ED- Fall Risk Assessment Last Done: 12/29/23 13:03
*Nursing Disposition Last Done: 12/29/23 16:37
ED- Cardiac Assessment Last Done: 12/29/23 13:03
ED- Pulmonary Assessment Last Done: 12/29/23 13:03
Discharge Date and Time
Discharge Date/Time: 12/29/23 16:44
Print Language: EGYPTIAN
[2023-12-29] MEDS: ATIVAN 0.5 MG IV (14:57)
[2023-12-29 15:00] VITALS: BP 149/86
[2023-12-29 15:24] LABS: D-Dimer 0.34 ug/mlFEU (0.00-0.50)
[2023-12-29 15:34] LABS: TSH 1.26 uIU/ml (0.47-4.68)
[2023-12-29 16:00] VITALS: BP 132/74
--- NOTE | 2023-12-29 16:14 | CON.CAR ---
Addendum entered and electronically signed by Ranjit Goldstein MD 12/29/23 16:42:
patient seen and examined
agree with ELIANE Cobb's notes and assessment
agree with ELIANE Cobb's plan
discussed with patient
mechanism appears sinus tach cannot rule out atrial tachycardia near sinus node
prior wheezing last year with stress testing
exam:
heent ncat
jvp 6
cor regular no m
lungs no wheeze rhale rhonchi
abd soft nt nd
no ext edema
aao x3
non focal neurogically
PCP: Marj Hopkins
[place] Ophthalmologist: Dr. Burrell
Impression:
Presents 12/29/2023 with palpitations and tachycardia
Sinus tachycardia
Possible atrial tachycardia
Obesity
Obstructive sleep apnea with CPAP
Hypertension
GERD
Diverticulitis
COPD
Anxiety
Echo 04/25/2023 (TDS): EF 65%, no significant valvular disease, normal right ventricular size and function
Exercise nuclear stress test April 2023:5:42 Feliz protocol, 6.75 METS, 91% age-predicted max heart rate, below average exercise tolerance, PVCs noted. Patient had wheezing with exercise and required albuterol at end of study. Perfusion imaging
small area of perfusion defect that is fixed in the mid anterior and apical anterior segments consistent with soft tissue attenuation which improved with proning. No TDI noted. EF 60%
Plan:
Patient is a 38-year-old female with past medical history significant for obesity, obstructive of sleep apnea with CPAP, hypertension, GERD, diverticulitis, COPD and anxiety who presents to emergency department 12/29/2023 after having intermittent
episodes of palpitations/tachycardia over the last 3 days. She reports her heart starts beating rapidly and lasts several seconds and up to a minute, usually at rest. She notes mild lightheadedness when this occurs. Due to ongoing symptoms and
need to have an endoscopy tomorrow she decided to seek emergency medical attention. Workup in the emergency department shows normal D-dimer, negative troponin. EKG shows normal sinus rhythm. Upon reviewing telemetry she did have short bursts of
sinus tachycardia with heart rates in the 120s to 130s as well as possible atrial tachycardia with heart rates as high as 140. She reports she was symptomatic. However heart rate returns to normal very quickly. She admits to ongoing anxiety and
abdominal discomfort. She has been hospitalized on 3 different occasions since 12/18/2023 with abdominal pain, nausea, intermittent diarrhea and poor appetite. She is being followed by GI and will be having an endoscopy tomorrow.
Patient reports she has had ongoing issues with poorly controlled blood pressure and was started on chlorthalidone as an outpatient with some improvement of blood pressure.
-Presents 12/29/2023 with palpitations and tachycardia.
-Noted to have sinus tachycardia as well as possible atrial tachycardia and short burst on telemetry.
-Blood work includes negative troponin, negative D-dimer, normal TSH at 1.26.
-Discussed initiation of AV peri blocking agent such as diltiazem. We discussed this would help with both her hypertension as well as her tachycardia and palpitations. Patient is reluctant to take it on a daily basis but is agreeable to use
diltiazem 120 mg extended release as needed.
-Our office will arrange for have an outpatient monitor placed on 12/30/2023 after completion of her endoscopy to rule out additional arrhythmia and assess heart rate ranges.
-Would avoid use of beta-elisha given history of COPD and wheezing
-Obesity/obstructive sleep apnea with COPD. We discussed importance of utilizing CPAP on a daily basis. We discussed poorly treated sleep apnea can increase risk of cardiac arrhythmias as well as hypertension.
-Discussed triggers of palpitations including dehydration, untreated apnea, lack of sleep, stress, dehydration.
-Patient had unremarkable echocardiogram in April 2023. She also had a exercise nuclear stress test at that time which was negative for ischemia but did show below average exercise tolerance
-Patient is scheduled for endoscopy with GI tomorrow. There is no cardiac contraindication to proceed with this procedure.
We will follow-up with patient upon completion of her outpatient monitor. Further recommendations can be made at that time.
Original Note:
Consultation
Consultation Request
Date/Time Consultation Requested: 12/29/2023
Date/Time Consultation Performed: 12/29/2023
Requesting Provider: Dr. Padilla
Performing Provider: Martha Cobb PA-C for Dr. Goldstein
Reason for Consultation: Palpitations
Medical History
-
History of Present Illness:
Patient is a 38-year-old female with past medical history significant for obesity, obstructive of sleep apnea with CPAP, hypertension, GERD, diverticulitis, COPD and anxiety who presents to emergency department 12/29/2023 after having intermittent
episodes of palpitations/tachycardia over the last 3 days. She reports her heart starts beating rapidly and lasts several seconds and up to a minute, usually at rest. She notes mild lightheadedness when this occurs. Due to ongoing symptoms and
need to have an endoscopy tomorrow she decided to seek emergency medical attention. Workup in the emergency department shows normal D-dimer, negative troponin. EKG shows normal sinus rhythm. Upon reviewing telemetry she did have short bursts of
sinus tachycardia with heart rates in the 120s to 130s as well as possible atrial tachycardia with heart rates as high as 140. She reports she was symptomatic. However heart rate returns to normal very quickly. She admits to ongoing anxiety and
abdominal discomfort. She has been hospitalized on 3 different occasions since 12/18/2023 with abdominal pain, nausea, intermittent diarrhea and poor appetite. She is being followed by GI and will be having an endoscopy tomorrow.
Patient reports she has had ongoing issues with poorly controlled blood pressure and was started on chlorthalidone as an outpatient with some improvement of blood pressure.
PMH:
Obesity
Obstructive sleep apnea with CPAP
Hypertension
GERD
Diverticulitis
COPD
Anxiety
Past Medical History
Past Medical History: Other (See HPI)
Past Surgical History: Appendectomy, and Other (Myringotomy tubes)
Social History
Tobacco: Former Smoker
Alcohol: None
Drug: None
Living: With Family
Family History
Family History: Diabetes and Hypertension
Allergies / Home Medications
Allergy/AdvReac Type Severity Reaction Status Date / Time
Penicillins Allergy Mild Hives Verified 12/25/23 20:19
�Medication �Instructions �Recorded �Confirmed �Type
chlorthalidone 25 mg tablet 25 mg PO DAILY 12/25/23 12/25/23 History
dexlansoprazole 60 mg 60 mg PO BID 12/25/23 12/25/23 History
capsule,biphase delayed release
pantoprazole 40 mg tablet,delayed 40 mg PO DAILY Gastrointestinal 12/25/23 Rx
release (Protonix) issue #30 tabs
sucralfate 1 gram tablet (Carafate) 1 g PO ACHS Gastrointestinal issue 12/25/23 Rx
#40 tabs
Review of Systems
-
History Source: Patient
All other systems: Negative unless noted
Physical Exam
Vital Signs
Temp Pulse Resp BP Pulse Ox
98 F 101 14 132/74 100
12/29/23 11:25 12/29/23 16:00 12/29/23 16:00 12/29/23 16:00 12/29/23 16:00
GEN: No distress, awake, Ox3, obese, slightly anxious appearing
HEENT: supple, anicteric, mmm
LUNGS: CTA, no wheezes/rales
CV: Reg, S1/S2,no murmur, rub or gallop
ABD: soft, BS+, NT/ND
EXT: No edema, clubbing or cyanosis
NEURO: Gross non-focal
SKIN: No rash, warm, dry, pain
Lab Results
12/29/23 11:32
12/29/23 11:32
Troponin I < 0.012 ng/ml 12/29/23 11:32
Impression / Plan
-
PCP: Marj Hopkins
[facility] Ophthalmologist: Dr. Burrell
Impression:
Presents 12/29/2023 with palpitations and tachycardia
Sinus tachycardia
Possible atrial tachycardia
Obesity
Obstructive sleep apnea with CPAP
Hypertension
GERD
Diverticulitis
COPD
Anxiety
Echo 04/25/2023 (TDS): EF 65%, no significant valvular disease, normal right ventricular size and function
Exercise nuclear stress test April 2023:5:42 Feliz protocol, 6.75 METS, 91% age-predicted max heart rate, below average exercise tolerance, PVCs noted. Patient had wheezing with exercise and required albuterol at end of study. Perfusion imaging
small area of perfusion defect that is fixed in the mid anterior and apical anterior segments consistent with soft tissue attenuation which improved with proning. No TDI noted. EF 60%
Plan:
Patient is a 38-year-old female with past medical history significant for obesity, obstructive of sleep apnea with CPAP, hypertension, GERD, diverticulitis, COPD and anxiety who presents to emergency department 12/29/2023 after having intermittent
episodes of palpitations/tachycardia over the last 3 days. She reports her heart starts beating rapidly and lasts several seconds and up to a minute, usually at rest. She notes mild lightheadedness when this occurs. Due to ongoing symptoms and
need to have an endoscopy tomorrow she decided to seek emergency medical attention. Workup in the emergency department shows normal D-dimer, negative troponin. EKG shows normal sinus rhythm. Upon reviewing telemetry she did have short bursts of
sinus tachycardia with heart rates in the 120s to 130s as well as possible atrial tachycardia with heart rates as high as 140. She reports she was symptomatic. However heart rate returns to normal very quickly. She admits to ongoing anxiety and
abdominal discomfort. She has been hospitalized on 3 different occasions since 12/18/2023 with abdominal pain, nausea, intermittent diarrhea and poor appetite. She is being followed by GI and will be having an endoscopy tomorrow.
Patient reports she has had ongoing issues with poorly controlled blood pressure and was started on chlorthalidone as an outpatient with some improvement of blood pressure.
-Presents 12/29/2023 with palpitations and tachycardia.
-Noted to have sinus tachycardia as well as possible atrial tachycardia and short burst on telemetry.
-Blood work includes negative troponin, negative D-dimer, normal TSH at 1.26.
-Discussed initiation of AV peri blocking agent such as diltiazem. We discussed this would help with both her hypertension as well as her tachycardia and palpitations. Patient is reluctant to take it on a daily basis but is agreeable to use
diltiazem 120 mg extended release as needed.
-Our office will arrange for have an outpatient monitor placed on 12/30/2023 after completion of her endoscopy to rule out additional arrhythmia and assess heart rate ranges.
-Would avoid use of beta-elisha given history of COPD and wheezing
-Obesity/obstructive sleep apnea with COPD. We discussed importance of utilizing CPAP on a daily basis. We discussed poorly treated sleep apnea can increase risk of cardiac arrhythmias as well as hypertension.
-Discussed triggers of palpitations including dehydration, untreated apnea, lack of sleep, stress, dehydration.
-Patient had unremarkable echocardiogram in April 2023. She also had a exercise nuclear stress test at that time which was negative for ischemia but did show below average exercise tolerance
-Patient is scheduled for endoscopy with GI tomorrow. There is no cardiac contraindication to proceed with this procedure.
We will follow-up with patient upon completion of her outpatient monitor. Further recommendations can be made at that time.
Data Reviewed
-
EKG: Report Reviewed by me, Discussed with Physician, Discussed with Nurse and Discussed with Patient
Labs: Labs Reviewed by me, Discussed with Physician, Discussed with Patient and Discussed with Family
[2023-12-29 16:37] VITALS: BP 132/74
== END 2023-12-29 16:44 | disposition home or self-care (01) ==
LOC: EMR 11:10
PROVIDERS: Student in an Organized Health Care Education/Training Program; EMERGENCY PHYSICIAN Emergency Medicine; FAMILY PHYSICIAN Family Medicine; OTHER PHYSICIAN Internal Medicine Cardiovascular Disease
DX: R00.2 Palpitations (principal); R42 Dizziness and giddiness; R00.0 Tachycardia, unspecified; I10 Essential (primary) hypertension; K21.9 Gastro-esophageal reflux disease without esophagitis; E11.9 Type 2 diabetes mellitus without complications; F41.9 Anxiety disorder, unspecified; F32.A Depression, unspecified; E66.9 Obesity, unspecified; G47.33 Obstructive sleep apnea (adult) (pediatric); K57.92 Diverticulitis of intestine, part unspecified, without perforation or abscess without bleeding; J44.9 Chronic obstructive pulmonary disease, unspecified; Z87.891 Personal history of nicotine dependence; Z88.0 Allergy status to penicillin
CPT/HCPCS: 99284; 96374; 80053; 84443; 84484; 85025; 85379; 93005

== ENCOUNTER 2023-12-30 06:29 | Day surgery (SDC) | payer BC, SELFPAY ==
[2023-12-30 14:47] VITALS: BP 164/93
[2023-12-30 15:02] VITALS: BMI 52.0
[2023-12-30 16:35] VITALS: BP 141/75
[2023-12-30 16:45] VITALS: BP 145/63
[2023-12-30 17:00] VITALS: BP 153/70
[2023-12-30 17:15] VITALS: BP 138/65
== END 2023-12-30 17:21 | disposition home or self-care (01) ==
LOC: GI 06:29
PROVIDERS: ATTENDING PHYSICIAN Internal Medicine Gastroenterology
DX: D50.0 Iron deficiency anemia secondary to blood loss (chronic) (principal); R13.10 Dysphagia, unspecified; R07.89 Other chest pain; R12 Heartburn; K31.89 Other diseases of stomach and duodenum; K22.89 Other specified disease of esophagus; R19.7 Diarrhea, unspecified
CPT/HCPCS: 43239; 88305; 88342

== ENCOUNTER 2023-12-31 15:27 | Emergency (ER) | payer BC, SELFPAY ==
[2023-12-31 15:30] VITALS: BP 143/98; BMI 52.4
[2023-12-31] MEDS: NSS 1000 IV (18:30)
[2023-12-31] MEDS: DILAUDID 0.5 MG IV (18:31)
[2023-12-31] MEDS: ZOFRAN 4 MG IV (18:31)
[2023-12-31 18:32] LABS: % Basophils 0.4 % (0-2); % Eosinophils 0.9 % (0-6); % Immature Granulocytes 0.3 % (0-0.5); % Monocytes 7.5 % (1.7-9.3); % Neutrophils 67.9 % (42.2-75.2); Absolute Basophils 0.1 10^3/uL (0-0.2); Absolute Eosinophils 0.1 10^3/uL (0-0.7); Absolute Lymphocytes 2.8 10^3/uL (1.2-3.4); Absolute Monocytes 0.9 10^3/uL (0.1-0.6); Absolute Neutrophils 8.2 10^3/uL (1.4-6.5); Hematocrit 36.1 % (37.0-47.0); Hemoglobin 12.1 g/dL (12.0-16.0); Mean Corp Hgb Conc. 33.5 g/dL (33.0-37.0); Mean Corpuscular Hgb 26.2 pg (27.0-31.0); Mean Corpuscular Volume 78.1 fL (81.0-99.0); Mean Platelet Volume 9.1 fL (7.4-10.4); Nucleated Red Blood Cells % 0 %; Platelet Count 338 10^3/uL (130-400); Red Blood Cell Count 4.62 10^6/uL (4.20-5.40); Red Cell Dist. Width 15.2 % (11.5-14.5)
[2023-12-31 18:36] VITALS: BP 138/79
[2023-12-31 18:50] LABS: HCG, Serum Qualitative Screen Negative
[2023-12-31 18:53] LABS: ALT (SGPT) 25 U/L (0-35); AST (SGOT) 20 U/L (14-36); Albumin 4.5 g/dl (3.5-5.0); Alkaline Phosphatase 81 U/L (38-126); Blood Urea Nitrogen 11 mg/dl (7-17); Calcium 10.2 mg/dl (8.4-10.2); Carbon Dioxide 27 mmol/L (22-30); Chloride 99 mmol/L (98-107); Estimated Creatinine Clearance > 125 ml/min; Glucose 101 mg/dl (70-99); Potassium 3.1 mmol/L (3.5-5.1); Sodium 135 mmol/L (135-145); Total Bilirubin 0.3 mg/dl (0.2-1.3); Total Protein 7.2 g/dl (6.3-8.2); eGFR > 60.00
[2023-12-31 19:00] VITALS: BP 137/85
[2023-12-31 19:05] LABS: Lipase 166 U/L (23-300)
[2023-12-31] MEDS: KCL 40 MEQ PO (19:15)
[2023-12-31] MEDS: OMNIPAQUE 50 ML PO (19:16)
[2023-12-31 20:06] VITALS: BP 154/100
[2023-12-31 21:01] LABS: Urine Albumin Negative (Neg - Trace); Urine Bilirubin Negative (Negative); Urine Character Clear (Clear); Urine Color Straw; Urine Glucose Negative (Negative); Urine Ketone 2+ (Negative); Urine Leukocyte Negative (Negative); Urine Nitrite Negative (Negative); Urine Occult Blood Negative (Negative); Urine Urobilinogen Negative (Neg - 1+)
[2023-12-31] MEDS: TORADOL 15 MG IV (22:05)
[2023-12-31 22:10] VITALS: BP 144/90
[2023-12-31 23:00] VITALS: BP 138/61
--- NOTE | 2023-12-31 23:00 | ED.GENMED ---
History of Present Illness
General
Chief Complaint: Abdominal Pain
Source: patient
Exam Limitations: none
Time Seen by Provider: 12/31/23 18:02
Nursing documentation reviewed up to this point in time: agreed with
Travel History
Have you had any contact with someone who has COVID-19?: No
Do you have any symptoms of coronavirus? Fever > 100 degrees, chills, cough, shortness of breath, sore throat, loss of taste or smell, muscle aches, or headache?: No
History of Present Illness
History of Present Illness:
Patient to ED with complaint of diffuse abdominal pain. States pain started approx 3 weeks ago after eating 'yellow dragon fruit'. She had been evaluated in ED last week. Had neg abdominal CT. Had endoscopy 3 days ago without abnormal findings.
She has a follow up appt next week with GI. States the pain is worsening. Denies fever/chills. Reports feeling bloated, belching, diarrhea. Brought to ED by spouse for marlon.
Past History
Past History
ED Past Medical History: GERD, HTN, NIDDM and Psychiatric (Anxiety, Depression)
ED Past Surgical History: Appendectomy, and Other (Myringotomy tubes)
Social History
Tobacco: Former smoker
Alcohol: None
Drug: None
Personal:
Living: with family
Review of Systems
Review of Systems
Allergies reviewed?: Yes
All Other Systems: ROS reviewed and negative except as documented in HPI and ROS
Constitutional: Reports no symptoms
EENT: Reports no symptoms
Respiratory: Reports no symptoms
Cardiac: Reports no symptoms
ABD/GI: Reports abdominal pain and diarrhea
: Reports no symptoms
Musculoskeletal: Reports no symptoms
Skin: Reports no symptoms
Neurological: Reports no symptoms
Psychiatric: Reports no symptoms
Phy Exam
General Physical Exam
General Presentation: well appearing and no apparent distress
General age: appears stated age
General Skin: warm and dry
General Habitus: normal
General Mental: alert
Cardiovascular Exam
Cardiovascular Exam: regular rate/rhythm and no edema
Gastrointestinal Exam
Gastrointestinal Exam: normal bowel sounds, soft, no organomegaly, no pulsatile mass and no cva tenderness
Palpation: generalized: Mild tenderness
Musculoskeletal Exam
Musculoskeletal Exam: full ROM and neuro vasc intact
Skin Exam
Skin Exam: normal color, warm/dry and no rash
Psychiatric Exam
Psychiatric Exam: normal mood/affect
Course
Orders/Labs/Results
Orders:
Orders
12/31/23 18:11
HYDROmorphone [Dilaudid] 0.5 mg IV NOW STA
Ondansetron Injectable [Zofran] 4 mg IV NOW STA
12/31/23 18:13
0.9% Sodium Chloride 1000 ml [Nss] 1,000 ml IV BOLUS
12/31/23 18:14
Test Result ONCE
12/31/23 18:23
Complete Blood Count/With Diff Urgent
Comprehensive Metabolic Panel Urgent
HCG, Serum Qualitative Screen Urgent
Lipase Urgent
12/31/23 18:33
STOOL [C difficile Antigen & Toxins] Urgent
RAVI Source: Feces/Stool
Specimen Description:
Stool Culture Urgent
RAVI Source: Feces/Stool
Specimen Description:
12/31/23 19:02
Potassium Chloride [KCl] 40 meq PO NOW STA
12/31/23 19:05
CT Abd/pel W Iv And Oral Contr Urgent
Comment:
Reason For Exam: Lower abdominal pain
Iohexol [Omnipaque] See Protocol PO NOW STA
12/31/23 20:50
Urinalysis Reflex To Culture Urgent
Date Specimen was Collected: 12/31/23
Time Specimen was Collected: 20:48
12/31/23 22:00
Ketorolac [Toradol] 15 mg .ROUTE .STK-MED ONE
12/31/23 22:02
Ketorolac [Toradol] 15 mg IV NOW STA
12/31/23 22:40
Dicyclomine [Bentyl] 20 mg PO NOW STA
Abnormal Lab Results
12/31/23 12/31/23
18:23 20:50
WBC 12.0 H 10^3/uL
(4.8-10.8)
Hct 36.1 L %
(37.0-47.0)
MCV 78.1 L fL
(81.0-99.0)
MCH 26.2 L pg
(27.0-31.0)
RDW 15.2 H %
(11.5-14.5)
Absolute Neuts (auto) 8.2 H 10^3/uL
(1.4-6.5)
Absolute Monos (auto) 0.9 H 10^3/uL
(0.1-0.6)
Potassium 3.1 L mmol/L
(3.5-5.1)
Creatinine 0.4 L mg/dL
(0.6-1.0)
Glucose 101 H mg/dl
(70-99)
Urine Ketones 2+ A
(Negative)
12/31/23 18:23
12/31/23 18:23
Vital Signs
Initial and Last Documented VS:
Initial Vital Signs
Temp Pulse Resp BP Pulse Ox
98.2 F 117 20 143/98 98
12/31/23 15:30 12/31/23 15:30 12/31/23 15:30 12/31/23 15:30 12/31/23 15:30
Last Documented Vital Signs
Temp Pulse Resp BP Pulse Ox
98.2 F 117 20 144/90 96
12/31/23 15:30 12/31/23 15:30 12/31/23 15:30 12/31/23 22:10 12/31/23 22:15
*Radiology
Radiology exam reviewed: radiology read reviewed
*Pulse Oximetry
Patient hypoxic: no
*Critical Care Note
Total Time (30-74mins, 75-104mins- exclusive of procedures): Not Applicable
ED Attending Note
-
Portions of this chart may have been created with voice recognition software.� Occasional wrong word or��sound alike� substitutions may have occurred due to the inherent limitations of voice recognition software.
Discharge Plan
Departure
Patient Disposition: Home (Routine Discharge)
Date of Disposition: 12/31/23
Time of Disposition: 22:42
Patient with high blood pressure during this ER visit?: No
Condition: Good
Covid-19: Not Applicable
Discharge Problem:
Abdominal pain
Instructions: Abdominal Pain
Prescriptions:
New
dicyclomine 20 mg tablet
20 mg PO QID PRN (Reason: abdominal pain/cramping) Qty: 40 0RF
acetaminophen-codeine 300-15 mg tablet
1 tab PO Q4HPRN PRN (Reason: pain) Qty: 12 0RF
No Action
acetaminophen [Tylenol Extra Strength] 500 mg Tablet
1,000 mg PO Q6H PRN (Reason: pain )
multivitamin Capsule
1 cap PO DAILY
fluticasone furoate-vilanterol 100-25 mcg/dose Blister With Device
1 inh INHALATION DAILY
Clindamycin
300 mg PO TID
Vitamin D (with calcium)
1 cap PO DAILY
chlorthalidone 25 mg Tablet
25 mg PO DAILY
dexlansoprazole 60 mg Capsule,Biphase Delayed Releas
60 mg PO BID
pantoprazole [Protonix] 40 mg tablet,delayed release (DR/EC)
40 mg PO DAILY Qty: 30 0RF
sucralfate [Carafate] 1 gram tablet
1 g PO ACHS Qty: 40 0RF
Rx Instructions:
Dissolve in 10ml of water. 30min-1hour before meals and HS
Referrals:
Benji Goldman, [Family Provider] - Tomorrow
Activity Restrictions/Additional Instructions:
Return to the emergency department immediately for any changes in/worsening of your symptoms.
Interventions
Interventions:
*Risk Screen - Suicide Last Done: 12/31/23 15:30
*General Assessment Last Done: 12/31/23 18:30
*Neglect/Abuse Screening Last Done: 12/31/23 15:30
ED- Fall Risk Assessment Last Done: 12/31/23 15:30
*ED COVID-19 Vaccine History Last Done: 12/31/23 15:30
NA-Ugzlvq-Kpjjmvmsok Assessment Last Done: 12/31/23 18:30
Discharge Date and Time
Print Language: KAZAKH
[2023-12-31] MEDS: BENTYL 20 MG PO (23:40)
== END 2023-12-31 23:53 | disposition home or self-care (01) ==
LOC: EMR 15:27
PROVIDERS: Nurse Practitioner; EMERGENCY PHYSICIAN Emergency Medicine; FAMILY PHYSICIAN Family Medicine
DX: R10.9 Unspecified abdominal pain (principal); Z87.891 Personal history of nicotine dependence
CPT/HCPCS: 99285; 96374; 96375 ×2; 96361; 74177; 80053; 81003; 83690; 84703; 85025; Q9967

== ENCOUNTER → 2024-01-08 08:42 | Outpatient (REF) | payer BC, SELFPAY | LOC: HWRAD 08:42 | PROVIDERS: ATTENDING PHYSICIAN Internal Medicine Gastroenterology; FAMILY PHYSICIAN Family Medicine | DX: R07.89 Other chest pain (principal) | CPT/HCPCS: 71270; Q9967 ==

== ENCOUNTER → 2024-01-09 06:26 | Day surgery (SDC) | payer BC, SELFPAY ==
[2024-01-09 09:26] LABS: Glucose - Point of Care 95 mg/dl (70-99)
== END ==
LOC: GI 06:26
PROVIDERS: ATTENDING PHYSICIAN Internal Medicine Gastroenterology
DX: R10.84 Generalized abdominal pain (principal); R19.7 Diarrhea, unspecified; K57.30 Diverticulosis of large intestine without perforation or abscess without bleeding; K64.0 First degree hemorrhoids
CPT/HCPCS: 45380; 88305; 82962

== ENCOUNTER 2024-01-16 05:58 | Inpatient (IN) | payer BC, SELFPAY ==
[2024-01-15 22:19] VITALS: BP 114/96
[2024-01-15 23:45] LABS: % Basophils 0.4 % (0-2); % Eosinophils 1.5 % (0-6); % Immature Granulocytes 0.5 % (0-0.5); % Lymphocytes 24.3 % (20.5-51.1); % Neutrophils 65.3 % (42.2-75.2); Absolute Eosinophils 0.2 10^3/uL (0-0.7); Absolute Immature Granulocytes 0.1 10^3/uL (0-0.05); Absolute Lymphocytes 2.6 10^3/uL (1.2-3.4); Absolute Monocytes 0.9 10^3/uL (0.1-0.6); Hematocrit 33.3 % (37.0-47.0); Hemoglobin 10.8 g/dL (12.0-16.0); Mean Corp Hgb Conc. 32.4 g/dL (33.0-37.0); Mean Corpuscular Volume 80.2 fL (81.0-99.0); Mean Platelet Volume 9.1 fL (7.4-10.4); Nucleated Red Blood Cells % 0 %; Platelet Count 291 10^3/uL (130-400); Red Blood Cell Count 4.15 10^6/uL (4.20-5.40); Red Cell Dist. Width 14.6 % (11.5-14.5); White Blood Cell Count 10.7 10^3/uL (4.8-10.8)
[2024-01-15 23:59] LABS: HCG, Serum Qualitative Screen Negative
[2024-01-16] VITALS (8 sets, daily range): BP systolic 129–145; BP diastolic 67–97; BMI 54.2; BMI 52.8
[2024-01-16 00:09] LABS: ALT (SGPT) 19 U/L (0-35); AST (SGOT) 18 U/L (14-36); Alkaline Phosphatase 86 U/L (38-126); Blood Urea Nitrogen 15 mg/dl (7-17); Calcium 9.1 mg/dl (8.4-10.2); Carbon Dioxide 26 mmol/L (22-30); Chloride 105 mmol/L (98-107); Glucose 119 mg/dl (70-99); Lipase 231 U/L (23-300); Potassium 3.8 mmol/L (3.5-5.1); Sodium 136 mmol/L (135-145); Total Bilirubin 0.1 mg/dl (0.2-1.3); Total Protein 6.5 g/dl (6.3-8.2); eGFR > 60.00
--- NOTE | 2024-01-16 02:23 | ED.GENMED ---
History of Present Illness
General
Chief Complaint: Abdominal Pain
Source: patient and family
Time Seen by Provider: 01/16/24 02:20
Travel History
Have you had any contact with someone who has COVID-19?: No
Do you have any symptoms of coronavirus? Fever > 100 degrees, chills, cough, shortness of breath, sore throat, loss of taste or smell, muscle aches, or headache?: No
History of Present Illness
History of Present Illness:
This a pleasant 38-year-old female who presents with left upper quadrant abdominal pain that has been present for the last 6 weeks. Patient states that the pain has been waxing and waning but she has not had a day where the pain was not there. She
denies nausea or vomiting but states that the pain is sharp. She does state it radiates through to the back. Patient denies fever or chills. Reports diarrhea. She states that she gets bloated after eating small meals. Patient has been seen in
the emergency department several times over the last 6 weeks. She recently had a colonoscopy which was normal. She does have an appointment to follow-up with Dr. Guan in February. She is concerned because though she does not have any answers, her
pain persists. She states that Toradol typically helps the pain. She does not like narcotic pain medicines as they give her headaches.
Vital signs are stable. Patient not hypoxic
Nursing note reviewed. I agree with nursing documentation up to this point in time.
Home Meds and allergies reviewed.
NUMBER AND COMPLEXITY OF PROBLEMS ADDRESSED AT THE ENCOUNTER
� Chronic conditions affecting care: Diabetes, hypertension, anxiety, subacute abdominal pain
� Acute Exacerbation and/or Progression of Chronic Illness: Abdominal pain
� Differential Diagnosis includes: Splenomegaly, abdominal spasm, peptic ulcer disease
AMOUNT AND/OR COMPLEXITY OF DATA TO BE REVIEWED AND ANALYZED
I performed an independent evaluation of the following and my interpretation is:
EKG:
CT:
X-rays:
Ultrasound:
Laboratory Studies: Normal white blood cell count negative , normal transaminases
Other:
Review of other/old records: Previous chest abdomen pelvis CTs reviewed. Abdominal ultrasound from December 21 also reviewed.
Clinical information was obtained by an independent historian:
Prescriptions/Medications Considered but not given:
Further testing considered but not performed:
RISK OF COMPLICATIONS AND/OR MORBIDITY OR MORTALITY OF PATIENT MANAGEMENT
Social determinants of health affecting care: Good Social Support, present at the bedside.
Discussion with other providers:
Escalation of care including admission/observation vs risk of discharge considered: Given the chronicity of patient's pain and the intractability of it, patient to be brought into the hospital for further evaluation.
CRITICAL CARE NOTE:
Total Time (exclusive of procedures):
Update:
Past History
Past History
ED Past Medical History: GERD, HTN, NIDDM and Psychiatric (Anxiety, Depression)
ED Past Surgical History: Appendectomy, and Other (Myringotomy tubes)
Social History
Tobacco: Former smoker
Alcohol: None
Drug: None
Personal:
Living: with family
Phy Exam
General Physical Exam
General Presentation: well appearing and no apparent distress
General Skin: warm and dry
General Habitus: normal
General Mental: alert
General Hydration: appears well hydrated
ENT Exam
ENT Exam: EOMI, pharynx normal, neck supple and normocephalic
Eye Exam
Eye Exam: PERRL, cornea clear and conjunctiva normal
Cardiovascular Exam
Cardiovascular Exam: regular rate/rhythm, no edema, no murmur and normal peripheral pulses
Pulmonary Exam
Pulmonary Exam: lungs clear, no respiratory distress, no rales, no crackles, no rhonchi, no stridor, no wheezing and no cough
Gastrointestinal Exam
Gastrointestinal Exam: normal bowel sounds
Palpation: left upper quadrant: Mild tenderness
Neurological Exam
Neurological Exam: alert, oriented x3, no motor deficits and speech normal
Musculoskeletal Exam
Musculoskeletal Exam: full ROM and no edema
Skin Exam
Skin Exam: normal color, warm/dry, no rash and no petechia
Psychiatric Exam
Psychiatric Exam: normal mood/affect
Course
Orders/Labs/Results
Orders:
Orders
01/15/24 22:25
Test Result ONCE
01/15/24 23:34
Complete Blood Count/With Diff Urgent
Comprehensive Metabolic Panel Urgent
HCG, Serum Qualitative Screen Urgent
Lipase Urgent
01/16/24 02:41
Acetaminophen 1000MG/100Ml [Ofirmev] 1,000 mg in 100 ml IV ONCE
Acetaminophen IV Indication:: ED Narcotic Naive Pt-ONCE
Ketorolac [Toradol] 30 mg IV NOW STA
US Abdomen Complete/Upper Urgent
Comment:
Reason For Exam: LUQ pain
01/16/24 03:07
Lactate Level [Lactic Acid] Urgent
01/16/24 04:38
Urinalysis Reflex To Culture Urgent
Date Specimen was Collected: 01/16/24
Time Specimen was Collected: 04:37
Urine Microscopic Reflex Cult Urgent
Urine Culture Urgent
RAVI Source: U
Specimen Description:
Date Specimen was Collected: 01/16/24
Time Specimen was Collected: 04:37
01/16/24 05:13
Oxycodone [Roxicodone] 5 mg PO NOW STA
Simethicone [Mylicon] 80 mg PO NOW STA
01/16/24 05:14
Add On- LAB Routine
Tests Added?: magnesium
BMP [Basic Metabolic Panel] Urgent
Celiac Comprehensive Panel Urgent
Ferritin Urgent
Iron Urgent
Magnesium Urgent
Comment: ADDED
Total Iron Binding Urgent
Transferrin [S] Urgent
Vitamin D, 25-OH Urgent
01/16/24 05:18
Oxycodone [Roxicodone] 5 mg .ROUTE .STK-MED ONE
01/16/24 05:29
Admit/Transfer Patient As Directed
Co-Sign Provider:
Level of Care: Inpatient admission
Assign to:: Telemetry
Physician / Group: Carlota Koehler
Diagnosis: abdominal pain
Reason for Telemetry: Arrhythmia
Date to Stop Telemetry: 01/19/24
Time to Stop Telemetry: 11:00
Reason for Hospitalization: abdominal pain with failure to improve on outpatient medications
Expected length of stay greater than two midnights?: Yes
ELOS- Estimated Length of Stay in days: 3
I certify the patient meets the requirements for IP care: Yes
01/16/24 05:30
Code Status As Directed
Resuscitation Status: Full Code
01/16/24 Breakfast
Gluten Free
At Your Request: Full Participation
Does patient need a safe tray?: No
Flush (0.9% Sodium Chloride) [Flush (Nss)] See Dose Instructions IV PER PROTOCOL
01/16/24 07:47
Albuterol Nebs [Ventolin Nebules] 1.25 mg INH R QIDPRN PRN
Dicyclomine [Bentyl] 20 mg PO QIDPRN PRN
01/16/24 07:47
Consult Notification Routine
Specialty to Notify: Gastroenterology
Date consulting provider notified: 01/16/24
Time consulting provider notified: 07:48
Notified:: Provider
GASTROINTESTINAL CONSULT Routine
Consulting Provider: Elyse Hussein
Was physician already notified: No
Reason for consult: persistent abdominal pain, need for further imaging?celiac?
Activity As Directed
Activity Level: As Tolerated
K pad [Heat Application] As Directed
Apply heat therapy device to (location):: left upper abdomen
Device Frequency setting:: 20 minute cycles
Device temperature setting:: Moderate: 100 F (38 C)
Vital Signs As Directed
Frequency: Per unit guidelines
DX Deep Vein Thrombosis Video Routine
01/16/24 08:00
Budesonide/Formoterol 80/4.5 [Symbicort 80/4.5 Mcg Inhaler] 2 puff INH R BID
Chlorthalidone [Hygroton] 25 mg PO DAILY
Pantoprazole [Protonix] 40 mg PO BID
01/16/24 09:00
Acetaminophen [Tylenol] 1,000 mg PO Q6H PRN
Ketorolac [Toradol] 15 mg IV Q6HPRN PRN
01/16/24 12:00
Simethicone [Mylicon] 80 mg PO QID
01/16/24 18:00
Enoxaparin Sodium [Lovenox] 40 mg SC QPM
01/19/24 11:00
DC Protocol for Telemetry ONCE
Abnormal Lab Results
01/15/24 01/16/24 01/16/24
23:34 04:38 05:14
RBC 4.15 L 10^6/uL
(4.20-5.40)
Hgb 10.8 L g/dL
(12.0-16.0)
Hct 33.3 L %
(37.0-47.0)
MCV 80.2 L fL
(81.0-99.0)
MCH 26.0 L pg
(27.0-31.0)
MCHC 32.4 L g/dL
(33.0-37.0)
RDW 14.6 H %
(11.5-14.5)
Abs Immat Gran (auto) 0.1 H 10^3/uL
(0-0.05)
Absolute Neuts (auto) 7.0 H 10^3/uL
(1.4-6.5)
Absolute Monos (auto) 0.9 H 10^3/uL
(0.1-0.6)
Creatinine 0.5 L mg/dL 0.4 L mg/dL
(0.6-1.0) (0.6-1.0)
Glucose 119 H mg/dl 106 H mg/dl
(70-99) (70-99)
% Saturation 12 L %
(20-50)
Total Bilirubin 0.1 L mg/dl
(0.2-1.3)
Ur Occult Blood Reflex 3+ A
(Negative)
Urine RBC 3-6 A /HPF
(0-2)
Urine Bacteria (Reflex) Moderate A
(Negative)
01/15/24 23:34
01/16/24 05:14
Vital Signs
Initial and Last Documented VS:
Initial Vital Signs
Temp Pulse Resp BP Pulse Ox
98.4 F 85 18 114/96 100
01/15/24 22:19 01/15/24 22:19 01/15/24 22:19 01/15/24 22:19 01/15/24 22:19
Last Documented Vital Signs
Temp Pulse Resp BP Pulse Ox
98.2 F 89 18 136/79 98
01/18/24 11:54 01/18/24 11:54 01/18/24 11:54 01/18/24 11:54 01/18/24 11:54
*Critical Care Note
Total Time (30-74mins, 75-104mins- exclusive of procedures): Not Applicable
Update Note
Update Note:
[facility]
[address] [place] [address] [place] [address]
[phone]
Patient Name: BJ ANTHONY
: 1985
Unit Number: [id number]
Age/Sex: 38/F
Patient
Location: EMR
Order Provider: Dorcas Mercado
Exam Service Date: 12/31/23

Diagnostic Imaging Report
SignedOrder #:[id number]
Exams: CT Abd/pel W Iv And Oral Contr
PROCEDURES: CT Abd/pel W Iv And Oral Contr
CLINICAL INDICATION: Lower abdominal pain.
TECHNIQUE: A CT examination of the abdomen and pelvis was performed following the administration of nonionic intravenous contrast. Oral contrast was administered. Coronal and sagittal reformatted images were obtained. Automatic exposure control
radiation dose reduction technology was utilized.
COMPARISON: CT abdomen/pelvis 12/25/2023.
FINDINGS:
CHEST: The lung bases are clear.
ABDOMEN:
Hepatic steatosis. Mild hepatosplenomegaly. The gallbladder, bile ducts, pancreas, bilateral adrenal glands, and kidneys are unremarkable other than a small cyst at the lower pole of the left kidney. No hydronephrosis.
The abdominal aorta is normal in caliber.
No abdominal or retroperitoneal lymphadenopathy.
Surgically absent appendix. Colonic diverticulosis, without evidence for acute diverticulitis. No bowel wall thickening, obstruction, or inflammation. No extraluminal free air, fluid collection, or ascites.
PELVIS: The urinary bladder, uterus, and adnexa are unremarkable. No pelvic lymphadenopathy or free fluid.
SKELETON: No suspicious osseous lesion.
IMPRESSION:
No CT evidence for an acute process in the abdomen or pelvis.
Electronically signed by Ladonna Singh 12/31/2023 10:08 PM
[employer] Dose Report: Up-to-date CT equipment and radiation dose reduction techniques were employed. CTDIvol: 31.1 mGy. DLP: 1805 mGy-cm.
Dictated By: Julian Singh DO
Dictated Date & Time: 12/31/232201
Signed/Co-Signer By: Julian Singh DO /
Signed/Co-Signer Date & Time: 12/31/232207 /
Transcribed by: Julian Singh DO
ULTRASOUND ABDOMEN COMPLETE
COMPARISON: CT abdomen and pelvis 12/31/2023
IMPRESSION:
Gallbladder is contracted. No visible stones.
Sonographic Siddiqui's sign negative.
Common bile duct measures 3 mm, normal.
Visualized pancreas is unremarkable.
Increased hepatic echogenicity is consistent with steatosis. The liver is enlarged.
The kidneys are normal.
Visualized abdominal aorta and inferior vena cava are normal.
Spleen is unremarkable.
Case results were faxed/electronically
ED Attending Note
-
Portions of this chart may have been created with voice recognition software.� Occasional wrong word or��sound alike� substitutions may have occurred due to the inherent limitations of voice recognition software.
Discharge Plan
Departure
Patient Disposition: Admit
Date of Disposition: 01/16/24
Time of Disposition: 04:02
Admit to: Med/Surg
Presentation/result/management discussed w/ accepting MD/: Hospitalist
Discharge Problem:
Intractable abdominal pain
Interventions
Interventions:
*Risk Screen - Suicide Last Done: 01/15/24 22:19
*General Assessment Last Done: 01/15/24 22:19
*Neglect/Abuse Screening Last Done: 01/15/24 22:19
ED- Fall Risk Assessment Last Done: 01/16/24 00:20
*ED COVID-19 Vaccine History Last Done: 01/16/24 00:02
*Nursing Disposition Last Done: 01/16/24 07:51
PK-Farrmr-Uearkwbxel Assessment Last Done: 01/16/24 05:46
Discharge Date and Time
Discharge Date/Time: 01/16/24 07:52
[2024-01-16 03:25] LABS: Lactic Acid 1.9 mmol/L (0.7-2.0)
[2024-01-16] MEDS: OFIRMEV 100 IV (03:31)
[2024-01-16] MEDS: TORADOL 30 MG IV (03:32)
--- NOTE | 2024-01-16 04:34 | HPS.HSE ---
Family Physician
-
Family Physician: Benji Goldman, DO
Chief Complaint
-
abdominal pain
History of Present Illness
Ms. Adilene Soni is a 38 yo woman with hx obesity, REED with CPAP, GERD, HTN, NIDDM, anxiety/depression, recent ER visits for abdominal pain with recent outpatient work-up with EGD/colo grossly unrevealing presents to the ER with continued
abdominal pain.
Patient states pain started beginning of December. Pain worse after eating resulting in significant abdominal bloating/distention and diarrhea. She states she has diarrhea up to 5x/day. Stool is brown. No black stools or bleeding. No vomiting.
She then has severe left upper quadrant pain, more tender to palpation.
Patient had an EGD on 12/29 which showed mainly normal findings, H. Pylori negative, pathology from duodenum biopsy showed 'fragments of small intestinal mucosa with focal increase intraepithelial lymphocytes'. She had a colonoscopy on 01/08 without
evidence of microscopic colitis.
No fevers/chills. + palpitations and recent diagnosis of PVC's. No rash. No LE swelling.
Medical History
Past Medical History
Past Medical History: Reports Other (obesity, REED with CPAP, GERD, HTN, NIDDM, anxiety/depression,)
Past Surgical History: Reports Appendectomy and
Social History
Tobacco: Former Smoker
Alcohol: None
Family History
Family History: Not pertinent
Allergies / Home Medications
Allergies reflects when Allergies were last updated in [employer].
Home Medications with original date entered in [employer]
Allergy/Medication List:
Allergies
Allergy/AdvReac Type Severity Reaction Status Date / Time
Penicillins Allergy Mild Hives Verified 01/09/24 09:18
Home Medications
chlorthalidone 25 mg tablet 25 mg PO DAILY 12/25/23
dexlansoprazole 60 mg capsule,biphase delayed release 60 mg PO BID 12/25/23
Vitamin D (with calcium) 1 cap PO DAILY 12/30/23
acetaminophen 500 mg tablet (Tylenol Extra Strength) 1,000 mg PO Q6H PRN pain 12/30/23
multivitamin 1 cap PO DAILY 12/30/23
dicyclomine 20 mg tablet 20 mg PO QID PRN abdominal pain/cramping #40 tabs 12/31/23
albuterol sulfate 1.25 mg/3 mL solution for nebulization 1.25 mg inhalation QID PRN asthma 01/09/24
fluticasone furoate 100 mcg-vilanterol 25 mcg/dose inhalation powder (Breo Ellipta) 1 inh inhalation DAILY 01/09/24
[id number] 140 gram-sod sulfate 9 gram-NaCl 5.2gram-KCl-C oral pwdr packs (Plenvu) 1 ea PO PER PROTOCOL 01/09/24
Review of Systems
-
History Source: Patient
A 12 point ROS was completed and negative except as noted: Yes
Physical Exam
Vital Signs
Vital Signs
Temp Pulse Resp BP Pulse Ox
98.4 F 92 16 145/68 98
01/15/24 22:19 01/16/24 00:21 01/16/24 00:21 01/16/24 00:07 01/16/24 00:08
Physical Exam
General: Conversant, Obese and Other (appears in pain )
HEENT: PERRLA
Respiratory: Clear; No Wheezes
Cardiac: S1/S2 and Regular Rhythm
GI: Other (tenderness left upper quadrant, no rebound or guarding )
Skin: Warm and Dry; No Rash
Neuro: AO x 3
Psych: Calm
Laboratory Results
-
01/15/24 23:34
01/15/24 23:34
Laboratory Results
Lactic Acid 1.9 mmol/L (0.7-2.0) 01/16/24 03:07
Total Bilirubin 0.1 mg/dl (0.2-1.3) L 01/15/24 23:34
AST 18 U/L (14-36) 01/15/24 23:34
ALT 19 U/L (0-35) 01/15/24 23:34
Alkaline Phosphatase 86 U/L (38-126) 01/15/24 23:34
Lipase 231 U/L (23-300) 01/15/24 23:34
Data Reviewed
-
Diagnostic Radiology: Report Reviewed by me
Lab Data: Labs Reviewed by me
Impression/Plan
-
Ms. Adilene Soni is a 38 yo woman with hx obesity, REED with CPAP, GERD, HTN, NIDDM, anxiety/depression, recent ER visits for abdominal pain with recent outpatient work-up with EGD/colo grossly unrevealing presents to the ER with continued
abdominal pain.
Triage VS: T 98.4, P 85, RR 18, BP 114/96, SpO2 100%
LABS: WBC 10.7, Hg 10.8, PLT 291, Na 136, K+ 3.8, Cl 105, CO2 26, BUN 15, Cr 0.5, Glucose 119, Lactate 1.9, T. Bili 0.1, AST 18, ALT 19, Alk Phos 86, HCG negative
Abdominal US: Gallbladder contracted, no visible stones; Siddiqui's sign negative. Pancreas unremarkable, liver enlarged, spleen unremarkable, kidneys normal...
CT 12/31/23
IMPRESSION:
No CT evidence for an acute process in the abdomen or pelvis.
Abdominal pain
GERD
-patient thus far with normal CT and grossly normal EGD and [place]. EGD did report possible e/o Celiac Disease but not specific. Patient she had normal testing for celiac disease but years ago
-admit to tele (given hx palpitations and SVT)
-send off celiac antibodies
-GI consult to see if need for further testing this admission (MRE? was mentioned to patient)
-trial of gluten free diet
-simethicone standing
-[employer] PPI
-[employer] Dicyclomine QID PRN
-patient states she recently had stool tested for infection as outpatient which was negative, will retest for ova and parasites
-given severity of pain will give oxycodone now and monitor response. patient cautious with opiates, reports family hx of addiction
-toradol PRN moderate pain
Essential HTN
-[employer] Clorthalidone
DVT PPx Lovenox subQ
FULL CODE
[2024-01-16 04:53] LABS: Urine Albumin Negative (Neg - Trace); Urine Bilirubin Negative (Negative); Urine Character Clear (Clear); Urine Color Yellow; Urine Glucose Negative (Negative); Urine Ketone Negative (Negative); Urine Leukocyte Negative (Negative); Urine Nitrite Negative (Negative); Urine Occult Blood 3+ (Negative); Urine Specific Gravity 1.015 (<1.030); Urine Urobilinogen Negative (Neg - 1+)
[2024-01-16] MEDS: ROXICODONE 5 MG PO (05:24)
[2024-01-16] MEDS: MYLICON 80 MG PO ×3 (05:24→18:20)
[2024-01-16 05:53] LABS: Urine Bacteria Moderate (Negative); Urine Squamous Cell >30 /LPF (Few); Urine White Cell 0-2 /HPF (0-5)
[2024-01-16 06:12] LABS: Blood Urea Nitrogen 12 mg/dl (7-17); Calcium 9.1 mg/dl (8.4-10.2); Carbon Dioxide 23 mmol/L (22-30); Chloride 107 mmol/L (98-107); Estimated Creatinine Clearance > 125 ml/min; Glucose 106 mg/dl (70-99); Iron 38 ug/dl (37-170); Magnesium 1.9 mg/dl (1.6-2.3); Potassium 3.8 mmol/L (3.5-5.1); Sodium 138 mmol/L (135-145); eGFR > 60.00
[2024-01-16 06:21] LABS: Percent Saturation 12 % (20-50); Total Iron Binding Capacity 316 ug/dl (265-497)
[2024-01-16 06:24] LABS: Vitamin D, 25-OH*** 38.5 ng/mL (30-80)
[2024-01-16 06:42] LABS: Ferritin 63.2 ng/ml (6.24-137)
[2024-01-16] MEDS: SYMBICORT 80/4.5 MCG INHALER 2 PUFF INH (08:16)
[2024-01-16] MEDS: PROTONIX 40 MG PO ×2 (08:48→19:50)
--- NOTE | 2024-01-16 09:04 | CON.GI ---
Addendum entered and electronically signed by Stephanie Dickson DO 01/16/24 12:18:
I saw and examined the patient.
The HEMOTHERAPIST or PA's note was reviewed and I agree with the note.
Comment: Adilene is a 38-year-old female with past medical history of hypertension, type 2 diabetes, asthma, GERD, depression anxiety, REED on CPAP, iron deficiency anemia, chronic diarrhea who presents with intractable abdominal pain which has been
unrelenting for the last 6 weeks. She reports being in her normal state of health prior to the onset of this pain that started 6 weeks ago, it is seriously affecting her quality of life. She has had an unremarkable GI workup thus far by
Bhupendra who is her outpatient GI. In the setting of her iron deficiency anemia which is attributed to heavy menses as well as diarrhea, the only other test to pursue was dedicated small bowel imaging to rule out presence of Crohn's disease or other
small bowel pathology, however the suspicion was this for low due to the location of her abdominal pain which is very focally located in the left upper quadrant. She is very tearful on exam due to had a stress this pain is and how much it is
affecting her life without any concrete answers. Previous recommendations to start on a TCA, patient very hesitant to do this as concerned that will cause PVCs. I discussed the possibility that this might not be GI in origin, which patient has
also felt the possibility of but is nervous to initiate whole other workup with a different specialty. Given the location of her pain I am not convinced that small bowel imaging will be revealing but in order to complete a comprehensive workup that
should be pursued, can consider CCK-HIDA scan however again this would be a very atypical presentation given the location of the pain. More rare etiologies, such as heavy metals, porphyria, mastocytosis, are more episodic in nature, but something
to think about if extensive workup is negative. Another avenue to explore is imaging of her vasculature with an MRA. If her pain can be controlled, all of the above workup is appropriate for the outpatient setting.
Recommendations:
Will check MRE and discuss possibility of MRA at the same time, with radiology.
Original Note:
Consultation
-
Date/Time Consultation Requested: 01/16/24 @ 07:47
Date/Time Consultation Performed: 01/16/24 @ 09:15
Requesting Provider: Dr. Koehler
Performing Provider: YAMILETH Rock; Dr. Stephanie Dickson
Reason for Consultation: persistent abdominal pain, need for further imaging?celiac?
Medical History
Chief Complaint / HPI
Chief Complaint: abdominal pain
History of Present Illness:
The patient is a 38-year-old female with a past medical history significant for hypertension, diabetes type 2, asthma, GERD on Dexilant, depression/anxiety, obstructive sleep apnea with CPAP use, chronic diarrhea, history of iron deficiency anemia
with iron infusions, who presented to the hospital with complaints of abdominal pain, which we are being asked to evaluate for. Upon review of outpatient records she is known to Dr. Primo verdugo, last seen in our office on January 05 by her nurse
practitioner Loren Martinez for a follow-up from an ER visit. She has had extensive workup for her abdominal pain and diarrhea including colonoscopy, endoscopy, ultrasound, CT imaging of the abdomen and pelvis along with the chest. She
has also had workup for fatty liver disease which FibroScan in December which showed F2 fibrosis. She was advised on trailing an antispasmodic with Levsin and starting on amitriptyline for possible functional abdominal pain although upon review of
telephone encounters the patient declined the amitriptyline due to concerns for side effects. The plan for outpatient evaluation included HIDA scan for ruling out gallbladder etiology along with endoscopic ultrasound as she had a submucosal nodule
in her esophagus and stomach. Based on review of EGD biopsies this was a negative for celiac disease. Colon biopsies also were normal. Today she presents for ongoing abdominal pain. She reports for the past 6 weeks she has had ongoing abdominal
pain in the left upper quadrant. She describes this pain as a constant, squeezing intensity that is worsened after eating. She has not been taking anything at home for the pain aside from the antispasmodic that was prescribed to her. She notes
that she has had significantly worsening diarrhea as well, appearing as a bile consistency with a strong odor. She felt that this might have been food poisoning when initially started but it had never resolved. She notes that within 10 to 30
minutes of eating she has the urge to move her bowels with significant discomfort. She does admit to nausea without vomiting, which comes on when she is experiencing pain. She does feel hungry but notes she has a decreased appetite as soon as she
eats she has the symptoms. She denies any melena, hematochezia, or hematemesis. She denies any fevers or chills, but does experience sweats when she has the urge to move her bowels. She admits she has been taking dicyclomine as prescribed by
Bhupendra but has not seen improvement with this. She did not start on amitriptyline as she was nervous regarding side effects and did not want to cause further symptoms. She notes that she does experience more palpitations when she experiences
pain, and has history of PVCs which she sees cardiology for. She otherwise denies any significant weight loss, dysphagia, dyne aphasia, chest pain, or shortness of breath. She denies use of NSAIDs. EGD and colonoscopy as noted below. She denies
any family history for any GI cancers or disorders. She does note chronic history of iron deficiency anemia, thought to be secondary to heavy menses, which she does follow with hematology for. She notes that she did have an iron infusion earlier
this year. Routine labs on admission showed a hemoglobin of 10.8, WBC 10.7, platelets 291,000, sodium 138, potassium 3.8, BUN 12, creatinine 0.4, lactic acid 1.9, serum iron 38, TIBC 3-16, iron saturation 12, ferritin 63.2, bilirubin 0.1, AST 18,
ALT 19, alk phos 86, lipase 231, hCG negative. Ultrasound of the abdomen was obtained which was limited showing a contracted gallbladder otherwise no biliary etiology and findings of hepatomegaly with suggestions of fatty liver disease. She was
placed on a gluten-free diet, celiac panel was sent and is pending, and she was admitted for further evaluation by GI.
Past Medical History
Past Medical History: Asthma, GERD, HTN, NIDDM, Psychiatric (Depression/anxiety) and Other (Chronic diarrhea, history of sleep apnea with CPAP use, iron deficiency anemia with history of iron infusions following with hematology)
Past Surgical History: Appendectomy, and Other (Ear tubes)
Social History
Tobacco: Non-Smoker
Alcohol: None
Drug: None
Family History
Family History: Reviewed & Not Pertinent
Allergies / Home Medications
Allergy/AdvReac Type Severity Reaction Status Date / Time
Penicillins Allergy Mild Hives Verified 01/09/24 09:18
�Medication �Instructions �Recorded
dexlansoprazole 60 mg 60 mg PO BID 12/25/23
capsule,biphase delayed release
acetaminophen 500 mg tablet 1,000 mg PO Q6HPRN PRN mild pain 12/30/23
(Tylenol Extra Strength)
cholecalciferol (vitamin D3) 25 25 mcg PO DAILY 12/30/23
mcg (1,000 unit) tablet (Vitamin
D3)
fluticasone furoate 100 1 inh inhalation R DAILYPRN PRN sob 01/09/24
mcg-vilanterol 25 mcg/dose
inhalation powder (Breo Ellipta)
albuterol sulfate 2.5 mg/3 mL 2.5 mg inhalation R Q4HPRN PRN sob 01/16/24
(0.083 %) solution for nebulization
dicyclomine 20 mg tablet 20 mg PO AC 01/16/24
therapeutic multivitamin 1 tab PO DAILY 01/16/24
Review of Systems
-
History Source: Patient
Constitutional: Reports Other (Sweats with bowel movements)
EENT: Reports No Symptoms
Respiratory: Reports No Symptoms
Cardiac: Reports Palpitations
Abdomen/GI: Reports Abdominal Pain, Nausea and Diarrhea
: Reports No Symptoms
Musculoskeletal: Reports No Symptoms
Skin: Reports No Symptoms
Neurological: Reports No Symptoms
Vital Signs
Temp Pulse Resp BP Pulse Ox
97.9 F 80 16 142/80 96
01/16/24 07:59 01/16/24 08:23 01/16/24 08:23 01/16/24 07:59 01/16/24 08:23
Physical Exam
Exam
General: Well Developed, Poor Appetite and Other (Mild distress secondary to abdominal pain)
HEENT: Normocephalic and Atraumatic
Respiratory: Clear
Cardiac: S1/S2 and Regular Rhythm
Breast: Deferred by me
GI: Soft, Normal Bowel Sounds, Tender (Left upper quadrant and mid epigastric area) and Distended (Mildly distended, obese abdomen)
Musculoskeletal: No Edema
Skin: Warm and Dry
Neuro: Awake, Alert and Oriented
Psych: Calm
Results
WBC 10.7 10^3/uL (4.8-10.8) 01/15/24 23:34
Hgb 10.8 g/dL (12.0-16.0) L 01/15/24 23:34
Hct 33.3 % (37.0-47.0) L 01/15/24 23:34
MCV 80.2 fL (81.0-99.0) L 01/15/24 23:34
Plt Count 291 10^3/uL (130-400) 01/15/24 23:34
Absolute Neuts (auto) 7.0 10^3/uL (1.4-6.5) H 01/15/24 23:34
Sodium 138 mmol/L (135-145) 01/16/24 05:14
Potassium 3.8 mmol/L (3.5-5.1) 01/16/24 05:14
Chloride 107 mmol/L (98-107) 01/16/24 05:14
Carbon Dioxide 23 mmol/L (22-30) 01/16/24 05:14
BUN 12 mg/dl (7-17) 01/16/24 05:14
Creatinine 0.4 mg/dL (0.6-1.0) L 01/16/24 05:14
Calcium 9.1 mg/dl (8.4-10.2) 01/16/24 05:14
Total Bilirubin 0.1 mg/dl (0.2-1.3) L 01/15/24 23:34
AST 18 U/L (14-36) 01/15/24 23:34
ALT 19 U/L (0-35) 01/15/24 23:34
Alkaline Phosphatase 86 U/L (38-126) 01/15/24 23:34
Lipase 231 U/L (23-300) 01/15/24 23:34
Diagnostic Image Results:
12/22/2023 ultrasound abdomen: No acute intra-abdominal process identified sonographically. Hepatomegaly and hepatic fatty infiltration as seen prior. Splenomegaly. Limited evaluation of midline structures secondary to overlying bowel gas as above.
12/25/2023 CT A/P:
1. Moderate diffuse hepatic steatosis.
2. Mild hepatosplenomegaly.
3. Mild diverticulosis in the descending and sigmoid colon.
4. Moderate-sized central disc herniation at L5/S1.
12/31/2023 CT A/P w/IV and oral: No CT evidence for an acute process in the abdomen or pelvis.
01/16/2024 US abdomen: Limited, contracted gallbladder. Negative sonographic Siddiqui's sign. No findings to suggest biliary tract dilatation. Hepatomegaly with findings suggesting diffuse fatty liver.
Prior GI Procedures:
EGD: 12/30/2023, Dr. Huizar: Normal esophagus, normal second portion of the duodenum, single mucosal papule found in the stomach, submucosal nodule in the esophagus 3 in a row, possible extrinsic compression; small bowel biopsies showing focal
increased intraepithelial lymphocytes without villous blunting. Otherwise biopsies negative for H. pylori or EOE.
Colonoscopy: 01/09/2024 Dr. Huizar: the entire colon appeared normal. TI appeared normal. Internal hemorrhoids, diverticulosis. Biopsies negative.
Assessment / Plan
-
The patient is a 38-year-old female with a past medical history significant for hypertension, prediabetes, asthma, GERD on Dexilant, depression/anxiety, fatty liver disease with F2 fibrosis, obstructive sleep apnea with CPAP use, chronic diarrhea,
history of iron deficiency anemia with iron infusions, who presented to the hospital with complaints of abdominal pain, which we are being asked to evaluate for. She has had extensive GI workup as above, with no significant findings. There was
presence of a submucosal nodule in the esophagus and also with a single papule mucosal nodule in the stomach, pending EUS. She has had ongoing diarrhea in the past 6 weeks with significant left upper quadrant pain with no findings on CT,
colonoscopy, or EGD. Upon presentation did have a mild anemia with a hemoglobin of 10.8 but no signs of bleeding. She does have a history of iron deficiency anemia and has had iron infusions in the past. She is not overtly iron deficient although
with a low iron saturation. Ultrasound imaging in the ER did not reveal any acute findings. No leukocytosis or fevers.
Problem list:
-left upper quadrant pain
-Acute on chronic diarrhea
-Mild microcytic anemia, with known history of iron deficiency
-Submucosal nodule in the esophagus/single papule mucosal nodule in the stomach
Other current medical history:
-GERD
-Prediabetes
-Hypertension
-Asthma
-Obstructive sleep apnea with CPAP use
-Anxiety/depression
Recommendations:
-Etiology of ongoing GI symptoms possibly functional/IBS etiology given prior unrevealing workup versus possible small bowel etiology versus less likely biliary etiology versus other.
-Given history of ongoing diarrhea, abdominal pain, iron deficiency anemia, with history of elevated fecal calprotectin, to consider small bowel source of pain such as underlying IBD.
-To consider MR enterography for further evaluation. Will review with Dr. Dickson
-Would consider capsule as well given iron deficiency anemia, which she can review outpatient with Dr. Huizar.
-Trend H/H
-PRN analgesics
-Continue Bentyl PRN
-PPI BID
-Send stool for fecal calprotectin, pancreatic elastase (OP stool studies were negative for infectious etiology).
-trial of gluten free diet, pending celiac panel although I do not feel she has celiac based on her EGD bx
-OP follow-up regarding fatty liver w/u. She has an appt 02/08 @ 8:30am with our PA Cara.
-Will follow
Data Reviewed
-
Old Records: Reviewed
-
-
Thank you for consultation and allowing me to participate in the patient's care. Please call the coupon redemption clerk GI physician during the after hours with any questions or concerns.
[2024-01-16] MEDS: TORADOL 15 MG IV ×2 (09:10→18:27)
--- NOTE | 2024-01-16 11:11 | CM ---
Met with pt at bedside
Lives with her and 18 yo son in a 1 story condo
Working FT, drives, independent
DME - CPAP
SNF/HH - no past hx
Has ride at d/c
PCP - Benji Goldman
CM will follow for d/c planning
Plan - anticipate home no needs
--- NOTE | 2024-01-16 14:21 | W.PN.HOSP.TC ---
Today's Communication/Plan
-
Pain control
MRA/MRE pending as per GI
Assessment / Plan
Assessment / Plan
Physical Exam
General: In mild distress due to pain
HEENT: Normocephalic.
Respiratory: Clear; No Wheezes
Cardiac: S1/S2 and Regular Rhythm
GI: Other (tenderness left upper quadrant, no rebound or guarding ). Soft. Positive Bowel sounds.
Skin: Warm and Dry.
Neuro: AO x 3
Psych: Calm
Assessment/Plan
Ms. Adilene Soni is a 38 yo woman with hx obesity, REED with CPAP, GERD, HTN, NIDDM, anxiety/depression, recent ER visits for abdominal pain with recent outpatient work-up with EGD/colo grossly unrevealing presents to the ER with continued
abdominal pain.
Triage VS: T 98.4, P 85, RR 18, BP 114/96, SpO2 100%
LABS: WBC 10.7, Hg 10.8, PLT 291, Na 136, K+ 3.8, Cl 105, CO2 26, BUN 15, Cr 0.5, Glucose 119, Lactate 1.9, T. Bili 0.1, AST 18, ALT 19, Alk Phos 86, HCG negative
Abdominal US: Gallbladder contracted, no visible stones; Siddiqui's sign negative. Pancreas unremarkable, liver enlarged, spleen unremarkable, kidneys normal...
CT 12/31/23
IMPRESSION:
No CT evidence for an acute process in the abdomen or pelvis.
Abdominal pain x 6 weeks
Diarrhea x 6 weeks
GERD
Hepatic Steatosis
Mild Splenomegaly on CT Imaging recently
-patient thus far with normal CT and grossly normal EGD and [place]. EGD did report possible e/o Celiac Disease but not specific. Patient she had normal testing for celiac disease but years ago
-continue to monitor on tele (given hx palpitations and SVT)
-celiac antibodies
-GI consulted recommendations appreciated -- check MRA and possibly MRA as well
-trial of gluten free diet
-simethicone standing
-VEHICLE BODY BUILDER PPI
-VEHICLE BODY BUILDER Dicyclomine QID PRN
-patient states she recently had stool tested for infection as outpatient which was negative
-Stool elastase and calprotectin
-given severity of pain will give oxycodone now and monitor response. patient cautious with opiates, reports family hx of addiction
-toradol PRN moderate pain
-Patient reports prior imaging suggested enlarged spleen and nodules behind her esophagus -- source of pain? -- repeat abdominal ultrasound on January 16, 2024 shows no splenomegaly
Essential HTN
-VEHICLE BODY BUILDER Clorthalidone
Left Kidney Small Cyst
Diverticulosis
Type 2 Diabetes Mellitus
Asthma
Depression
Anxiety
REED on CPAP
Iron deficiency anemia
Chronic diarrhea
DVT PPx Lovenox subQ
FULL CODE
Anticipated Discharge: 24 - 48 hours
Subjective/Interval History
-
Date of Service: January 16, 2024
Patient was seen and examined. She reported continued pain in her left upper abdomen.
Objective Data
-
Labs:
Laboratory Results
01/16/24
05:14
Sodium 138
Potassium 3.8
Chloride 107
Carbon Dioxide 23
BUN 12
Creatinine 0.4 L
Glucose 106 H
Calcium 9.1
Vital Signs:
Vital Signs
Temp Pulse Resp BP Pulse Ox
98.4 F 79 16 139/97 99
01/16/24 12:04 01/16/24 12:04 01/16/24 12:04 01/16/24 12:04 01/16/24 12:04
[2024-01-16] MEDS: ATIVAN 0.5 MG PO (14:39)
[2024-01-16] MEDS: LOVENOX 40 MG SC (18:20)
[2024-01-16] MEDS: VENTOLIN NEBULES 1.25 MG INH (19:47)
[2024-01-16] MEDS: SYMBICORT 80/4.5 MCG INHALER INH (19:47)
[2024-01-16] MEDS: MYLICON PO (23:20)
[2024-01-16] MEDS: MELATONIN 5 MG PO (23:39)
[2024-01-17 03:40] VITALS: BP 119/60
[2024-01-17 07:55] VITALS: BP 141/78
[2024-01-17] MEDS: SYMBICORT 80/4.5 MCG INHALER INH ×2 (08:24→18:50)
[2024-01-17] MEDS: MYLICON 80 MG PO ×4 (08:31→20:48)
[2024-01-17] MEDS: PROTONIX 40 MG PO ×2 (08:31→20:14)
[2024-01-17] MEDS: TORADOL 15 MG IV (08:38)
--- NOTE | 2024-01-17 11:17 | W.PN.HOSP.TC ---
Today's Communication/Plan
-
Control pain with PO NSAIDs
Watch BPs
Outpatient hematology/pain management follow-up
Assessment / Plan
Assessment / Plan
Physical Exam
General: Not in acute distress.
HEENT: Normocephalic.
Respiratory: Clear; No Wheezes
Cardiac: S1/S2 and Regular Rhythm
GI: Other (tenderness left upper quadrant, no rebound or guarding ). Soft. Positive Bowel sounds.
Skin: Warm and Dry.
Neuro: AO x 3
Psych: Calm
Assessment/Plan
Ms. Adilene Soni is a 38 yo woman with hx obesity, REED with CPAP, GERD, HTN, NIDDM, anxiety/depression, recent ER visits for abdominal pain with recent outpatient work-up with EGD/colo grossly unrevealing presents to the ER with continued
abdominal pain.
Triage VS: T 98.4, P 85, RR 18, BP 114/96, SpO2 100%
LABS: WBC 10.7, Hg 10.8, PLT 291, Na 136, K+ 3.8, Cl 105, CO2 26, BUN 15, Cr 0.5, Glucose 119, Lactate 1.9, T. Bili 0.1, AST 18, ALT 19, Alk Phos 86, HCG negative
Abdominal US: Gallbladder contracted, no visible stones; Siddiqui's sign negative. Pancreas unremarkable, liver enlarged, spleen unremarkable, kidneys normal...
CT 12/31/23
IMPRESSION:
No CT evidence for an acute process in the abdomen or pelvis.
Abdominal pain x 6 weeks
Diarrhea x 6 weeks
GERD
Hepatic Steatosis
Mild Splenomegaly on CT Imaging recently
-patient thus far with normal CT and grossly normal EGD and [employer] [place]. EGD did report possible e/o Celiac Disease but not specific. Patient she had normal testing for celiac disease but years ago
-continue to monitor on tele (given hx palpitations and SVT)
-celiac antibodies pending
-GI consulted recommendations appreciated -- On January 16, 2024, no MR evidence of inflammatory changes of the bowel
-trial of gluten free diet
-simethicone standing
-SERVICE MECHANIC PPI
-SERVICE MECHANIC Dicyclomine QID PRN
-patient states she recently had stool tested for infection as outpatient which was negative
-patient not agreeable to receiving opiates, reports family hx of addiction
-NSAIDs prn moderate pain
-hematology consulted given splenomegaly: outpatient bone marrow biopsy, also EBV serologies
Essential HTN
-SERVICE MECHANIC Clorthalidone
Left Kidney Small Cyst
Diverticulosis
Type 2 Diabetes Mellitus
Asthma
Depression
Anxiety
REED on CPAP
Iron deficiency anemia
Chronic diarrhea
DVT PPx Lovenox subQ
FULL CODE
Anticipated Discharge: Within 24 hours
Subjective/Interval History
-
Date of Service: January 17, 2024
Patient was seen and examined. She reported on and off left upper quadrant pain, she would like to try some PO NSAIDs today to see whether it can control the pain.
Objective Data
-
Vital Signs:
Vital Signs
Temp Pulse Resp BP Pulse Ox
98.4 F 80 18 141/78 100
01/17/24 07:55 01/17/24 07:55 01/17/24 07:55 01/17/24 07:55 01/17/24 07:55
I&O
01/16/24 01/17/24 01/18/24
06:59 06:59 06:59
Intake Total 720 / 720 960 / 960
Balance 720 / 720 960 / 960
--- NOTE | 2024-01-17 12:26 | W.PN.GI.CBS2 ---
Today's Communication / Plan
-
Diet as tolerated
Continue Bentyl
Assessment / Plan
-
The patient is a 38-year-old female with a past medical history significant for hypertension, prediabetes, asthma, GERD on Dexilant, depression/anxiety, fatty liver disease with F2 fibrosis, obstructive sleep apnea with CPAP use, chronic diarrhea,
history of iron deficiency anemia with iron infusions, who presented to the hospital with complaints of abdominal pain, which we are being asked to evaluate for. She has had extensive GI workup as above, with no significant findings. There was
presence of a submucosal nodule in the esophagus and also with a single papule mucosal nodule in the stomach, pending EUS. She has had ongoing diarrhea in the past 6 weeks with significant left upper quadrant pain with no findings on CT,
colonoscopy, or EGD. Upon presentation did have a mild anemia with a hemoglobin of 10.8 but no signs of bleeding. She does have a history of iron deficiency anemia and has had iron infusions in the past. She is not overtly iron deficient although
with a low iron saturation. Ultrasound imaging in the ER did not reveal any acute findings. No leukocytosis or fevers.
Problem list:
-left upper quadrant pain
-Acute on chronic diarrhea
-Mild microcytic anemia, with known history of iron deficiency
-Submucosal nodule in the esophagus/single papule mucosal nodule in the stomach
Other current medical history:
-GERD
-Prediabetes
-Hypertension
-Asthma
-Obstructive sleep apnea with CPAP use
-Anxiety/depression
MR enterography 01/16/2024
IMPRESSION:
No MR evidence of inflammatory changes of the bowel.
Mild splenomegaly.
Recommendations:
Patient underwent extensive GI workup including EGD/colonoscopy/MRE with no clear GI etiology to explain her current symptoms. Likely IBS versus functional vs musculoskeletal . Patient is very concerned about her splenomegaly reported as mild to
15.2 cm . She also thinks that may be causing her symptoms especially left upper quadrant abdominal pain /unusual feeling inside abdomen etc. patient would like to get an opinion from hematology/surgery. Discussed with medical team
I will also advised to get a pain management consultation inpatient vs outpatient
Management of anxiety as per medical team
If abdominal pain persist will recommend surgical consultation at the discretion of medical team
Continue Bentyl
Stool calprotectin/elastase pending
Advised to follow-up with Dr. Huizar on discharge
Total Time Spent with Patient (in minutes): 35
Subjective
Subjective
Date of Service: January 17, 2024
Patient continues to complain of left upper quadrant abdominal pain -increased with movement/eating. Denies any nausea or vomiting. Diarrhea somewhat better.
Objective
Data Reviewed
Laboratory Data:
Laboratory Results
01/15/24 23:34
01/16/24 05:14
Laboratory Results
Magnesium 1.9 mg/dl (1.6-2.3) 01/16/24 05:14
Total Bilirubin 0.1 mg/dl (0.2-1.3) L 01/15/24 23:34
AST 18 U/L (14-36) 01/15/24 23:34
ALT 19 U/L (0-35) 01/15/24 23:34
Alkaline Phosphatase 86 U/L (38-126) 01/15/24 23:34
Lipase 231 U/L (23-300) 01/15/24 23:34
Vital Signs and I&O:
Vital Signs
Temp Pulse Resp BP Pulse Ox
98.4 F 80 18 141/78 100
01/17/24 07:55 01/17/24 07:55 01/17/24 07:55 01/17/24 07:55 01/17/24 07:55
I&O
01/16/24 01/17/24 01/18/24
06:59 06:59 06:59
Intake Total 720 / 720 960 / 960
Balance 720 / 720 960 / 960
Physical Exam
Physical Exam
GI: Soft, Non Distended and Tender (LUQ tenderness without guarding or rigidity)
[2024-01-17 12:27] VITALS: BP 133/70
[2024-01-17] MEDS: MOTRIN 200 MG PO ×2 (14:10→23:20)
[2024-01-17] MEDS: VENTOLIN NEBULES 1.25 MG INH (14:35)
[2024-01-17 15:28] LABS: Transferrin 240 mg/dL (200-360)
[2024-01-17 16:21] VITALS: BP 139/77
[2024-01-17] MEDS: TYLENOL 1000 MG PO ×2 (16:30→20:14)
--- NOTE | 2024-01-17 17:50 | CON.ONC ---
Impression
Impression
LUQ pain
Splenomegaly of unclear chronicity
Early satiety with unintentional weight loss
Plan
Plan
EBV serologies, exclude mono causing splenic enlargement
Outpt bone marrow biopsy.
Although liver disease can cause splenomegaly, this would be a subacute process and would not be expected to cause this much pain.
Pain from spleen (if that is what the pain is from) more suggestive of splenomegaly which occurred rapidly, such as from infection or malignancy.
Her CBC is unremarkable but outpt marrow needed to exclude primary hematologic process.
Patient History
History of Present Illness
Ms. Adileen Soni is a 38 yo woman with hx obesity, REED with CPAP, GERD, HTN, NIDDM, anxiety/depression, recent ER visits for abdominal pain with recent outpatient work-up with EGD/colo grossly unrevealing presents to the ER with continued
abdominal pain. Patient states pain started beginning of December. Pain worse after eating resulting in significant abdominal bloating/distention and diarrhea. She states she has diarrhea up to 5x/day. Stool is brown. No black stools or bleeding.
No vomiting. She then has severe left upper quadrant pain, more tender to palpation. Patient had an EGD on 12/29 which showed mainly normal findings, H. Pylori negative, pathology from duodenum biopsy showed 'fragments of small intestinal mucosa
with focal increase intraepithelial lymphocytes'. She had a colonoscopy on 01/08 without evidence of microscopic colitis. Some of her abdominal imaging studies have described an enlarged spleen. Pt is concerned that this is the cause of her pain.
She admits to early satiety and 20 lbs weight loss. Her medical history is otherwise notable for fatty liver with hepatomegaly.
Past-Medical/Surgical History
Past Medical History
Past Medical History: Reports Other (fatty liver, obesity, REED with CPAP, GERD, HTN, NIDDM, anxiety/depression,)
Past Surgical History: Reports Appendectomy and
Social History
Tobacco: Former Smoker
Alcohol: None
Family History
Family History: Not pertinent
Patient Medication
�Medication �Instructions �Recorded �Confirmed �Last Taken �Type
dexlansoprazole 60 mg 60 mg PO BID 12/25/23 01/16/24 01/15/24 History
capsule,biphase delayed release
acetaminophen 500 mg tablet 1,000 mg PO Q6HPRN PRN mild pain 12/30/23 01/16/24 01/16/24 History
(Tylenol Extra Strength)
cholecalciferol (vitamin D3) 25 25 mcg PO DAILY 12/30/23 01/16/24 1 Week Ago History
mcg (1,000 unit) tablet (Vitamin ~01/02/24
D3)
fluticasone furoate 100 1 inh inhalation R DAILYPRN PRN sob 01/09/24 01/16/24 01/08/24 09:00 History
mcg-vilanterol 25 mcg/dose
inhalation powder (Breo Ellipta)
albuterol sulfate 2.5 mg/3 mL 2.5 mg inhalation R Q4HPRN PRN sob 01/16/24 01/16/24 Unknown History
(0.083 %) solution for nebulization
dicyclomine 20 mg tablet 20 mg PO AC 01/16/24 01/16/24 01/15/24 History
therapeutic multivitamin 1 tab PO DAILY 01/16/24 01/16/24 Unknown History
Active Medications
Generic Name Dose Route Start Last Admin
Trade Name Freq PRN Reason Stop Dose Admin
Acetaminophen 1,000 mg 01/16/24 09:00 01/17/24 16:30
Acetaminophen 500 Mg Tablet PO 02/13/24 08:59 1,000 mg
Q6H PRN Administration
pain
Albuterol Sulfate 1.25 mg 01/16/24 07:47 01/17/24 14:35
Albuterol Nebs 1.25 Mg/3 Ml Ampul INH 1.25 mg
R QIDPRN PRN Administration
asthma
Protocol
Budesonide/Formoterol Fumarate 2 puff 01/16/24 08:00 01/17/24 08:24
Symbicort Inhaler 80/4.5 INH 02/13/24 07:59 Not Given
R BID BHARTI
Chlorthalidone 25 mg 01/16/24 08:00 01/17/24 08:30
Chlorthalidone 25 Mg Tablet PO 02/13/24 07:59 Not Given
DAILY BHARTI
Dicyclomine HCl 20 mg 01/16/24 07:47
Dicyclomine 20 Mg Tablet PO 02/13/24 07:46
QIDPRN PRN
abdominal pain/cramping
Enoxaparin Sodium 40 mg 01/16/24 18:00 01/16/24 18:20
Enoxaparin Sodium 40 Mg/0.4 Ml Syringe SC 02/13/24 17:59 40 mg
QPM BHARTI Administration
Ibuprofen 200 mg 01/17/24 14:00 01/17/24 14:10
Ibuprofen 200 Mg Tablet PO 02/14/24 13:59 200 mg
Q6HPRN PRN Administration
pain
Melatonin 5 mg 01/16/24 20:43 01/16/24 23:39
Melatonin 5 Mg Tablet PO 02/13/24 20:42 5 mg
HSPRN PRN Administration
insominia
Pantoprazole Sodium 40 mg 01/16/24 08:00 01/17/24 08:31
Pantoprazole 40 Mg Delayed Release Tablet PO 02/13/24 07:59 40 mg
BID BHARTI Administration
Simethicone 80 mg 01/16/24 18:00 01/17/24 13:37
Simethicone 80 Mg Chewable Tablet PO 02/13/24 17:59 80 mg
QID BHARTI Administration
Sodium Chloride 0 flush 01/16/24 06:00
Sodium Chloride 0.9% (Flush) Syringe IV 02/13/24 05:59
PER PROTOCOL BHARTI
Review of Systems
-
History Source: Patient
All Other Systems: Reviewed and Negative
Physical Exam
-
General: Well Developed and Obese
GI: Other (Tender LUQ)
Labs
Lab Results
WBC 10.7 10^3/uL (4.8-10.8) 01/15/24:34
RBC 4.15 10^6/uL (4.20-5.40) L 01/15/24:34
Hgb 10.8 g/dL (12.0-16.0) L 01/15/24:34
Hct 33.3 % (37.0-47.0) L 01/15/24:
MCV 80.2 fL (81.0-99.0) L 01/15/24:
MCH 26.0 pg (27.0-31.0) L 01/15/24:34
MCHC 32.4 g/dL (33.0-37.0) L 01/15/24:
RDW 14.6 % (11.5-14.5) H 01/15/24:34
Plt Count 291 10^3/uL (130-400) 01/15/24:34
MPV 9.1 fL (7.4-10.4) 01/15/24:34
Abs Immat Gran (auto) 0.1 10^3/uL (0-0.05) H 01/15/24:34
Absolute Neuts (auto) 7.0 10^3/uL (1.4-6.5) H 01/15/24:34
Absolute Lymphs (auto) 2.6 10^3/uL (1.2-3.4) 01/15/24:34
Absolute Monos (auto) 0.9 10^3/uL (0.1-0.6) H 01/15/24:34
Absolute Eos (auto) 0.2 10^3/uL (0-0.7) 01/15/24:34
Absolute Basos (auto) 0.0 10^3/uL (0-0.2) 01/15/24 23:34
Immature Gran % 0.5 % (0-0.5) 01/15/24 23:34
Neutrophils % 65.3 % (42.2-75.2) 01/15/24:
Lymphocytes % 24.3 % (20.5-51.1) 01/15/24:34
Monocytes % 8.0 % (1.7-9.3) 01/15/24:34
Eosinophils % 1.5 % (0-6) 01/15/24:34
Basophils % 0.4 % (0-2) 01/15/24:34
Creatinine 0.4 mg/dL (0.6-1.0) L 01/16/24 05:14
Abd U/S 12/22/23: Liver enlarged and fatty, spleen enlarged at 14.1 cm without focal abnormality.
MR Enterography 01/16/24: Spleen 15.2 cm
Vital Signs
Vital Signs
Temp Pulse Resp BP Pulse Ox
98.4 F 79 16 139/77 98
01/17/24 16:21 01/17/24 16:21 01/17/24 16:21 01/17/24 16:21 01/17/24 16:21
[2024-01-17] MEDS: LOVENOX 40 MG SC (18:08)
[2024-01-17 19:35] VITALS: BP 116/78
[2024-01-17] MEDS: MELATONIN 5 MG PO (20:48)
[2024-01-17] MEDS: LIDOCAINE 4% PATCH 1 PATCH TOPICAL (20:48)
[2024-01-17 21:23] LABS: Blood Urea Nitrogen 12 mg/dl (7-17); Calcium 8.9 mg/dl (8.4-10.2); Carbon Dioxide 27 mmol/L (22-30); Chloride 106 mmol/L (98-107); Estimated Creatinine Clearance > 125 ml/min; Glucose 146 mg/dl (70-99); Potassium 3.9 mmol/L (3.5-5.1); Sodium 137 mmol/L (135-145); eGFR > 60.00
[2024-01-17 23:40] VITALS: BP 128/72
--- NOTE | 2024-01-18 01:20 | W.PN.UPDATE ---
Update Note
Progress Note Update
RN reports on tele pt having periods of trigeminy
BMP and mag ordered---> K 3.9 mag 2.0
pt tele back to [facility] with occasional pvc (pt bothered by them)
Reviewing chart pt with hx of palpitations and SVT. Has been seen by [facility] and was recommended to start diltiazem 120mg daily but pt agreed to only take prn.
Avoiding BB due to copd/asthma hx
May need to Consider cardiology consult
[2024-01-18] MEDS: ATIVAN 0.5 MG PO (01:30)
[2024-01-18 03:35] VITALS: BP 115/55
[2024-01-18 06:52] LABS: Hemoglobin 10.8 g/dL (12.0-16.0); Mean Corp Hgb Conc. 31.8 g/dL (33.0-37.0); Mean Corpuscular Hgb 26.6 pg (27.0-31.0); Mean Corpuscular Volume 83.7 fL (81.0-99.0); Mean Platelet Volume 9.5 fL (7.4-10.4); Platelet Count 246 10^3/uL (130-400); Red Blood Cell Count 4.06 10^6/uL (4.20-5.40); Red Cell Dist. Width 14.3 % (11.5-14.5); White Blood Cell Count 8.6 10^3/uL (4.8-10.8)
[2024-01-18 07:00] VITALS: BP 133/72
[2024-01-18 07:28] LABS: ALT (SGPT) 15 U/L (0-35); AST (SGOT) 15 U/L (14-36); Albumin 3.2 g/dl (3.5-5.0); Alkaline Phosphatase 80 U/L (38-126); Blood Urea Nitrogen 10 mg/dl (7-17); Calcium 8.8 mg/dl (8.4-10.2); Carbon Dioxide 26 mmol/L (22-30); Chloride 105 mmol/L (98-107); Estimated Creatinine Clearance > 125 ml/min; Glucose 103 mg/dl (70-99); Sodium 141 mmol/L (135-145); Total Bilirubin 0.2 mg/dl (0.2-1.3); Total Protein 5.7 g/dl (6.3-8.2); eGFR > 60.00
[2024-01-18] MEDS: MYLICON 80 MG PO (08:23)
[2024-01-18] MEDS: PROTONIX 40 MG PO (08:23)
[2024-01-18] MEDS: SYMBICORT 80/4.5 MCG INHALER INH (08:31)
[2024-01-18] MEDS: TYLENOL 1000 MG PO (08:42)
[2024-01-18 11:54] VITALS: BP 136/79
--- NOTE | 2024-01-18 12:35 | W.PN.HOSP.TC ---
Today's Communication/Plan
-
Discharge today
Assessment / Plan
Assessment / Plan
Physical Exam
General: Not in acute distress.
HEENT: Normocephalic.
Respiratory: Clear; No Wheezes
Cardiac: S1/S2 and Regular Rhythm
GI: Other (tenderness left upper quadrant, no rebound or guarding ). Soft. Positive Bowel sounds.
Skin: Warm and Dry.
Neuro: AAO x 3
Psych: Anxious
Assessment/Plan
Ms. Adilene Soni is a 38 yo woman with hx obesity, REED with CPAP, GERD, HTN, NIDDM, anxiety/depression, recent ER visits for abdominal pain with recent outpatient work-up with EGD/colo grossly unrevealing presents to the ER with continued
abdominal pain.
Triage VS: T 98.4, P 85, RR 18, BP 114/96, SpO2 100%
LABS: WBC 10.7, Hg 10.8, PLT 291, Na 136, K+ 3.8, Cl 105, CO2 26, BUN 15, Cr 0.5, Glucose 119, Lactate 1.9, T. Bili 0.1, AST 18, ALT 19, Alk Phos 86, HCG negative
Abdominal US: Gallbladder contracted, no visible stones; Siddiqui's sign negative. Pancreas unremarkable, liver enlarged, spleen unremarkable, kidneys normal...
CT 12/31/23
IMPRESSION:
No CT evidence for an acute process in the abdomen or pelvis.
Abdominal pain x 6 weeks
Diarrhea x 6 weeks
GERD
Hepatic Steatosis
Mild Splenomegaly on CT Imaging recently
-patient thus far with normal CT and grossly normal EGD and [place]. EGD did report possible e/o Celiac Disease but not specific. Patient she had normal testing for celiac disease but years ago
-continue to monitor on tele (given hx palpitations and SVT)
-Celiac antibodies pending
-EBV serologies pending
-GI consulted recommendations appreciated -- On January 16, 2024, no MR evidence of inflammatory changes of the bowel
-simethicone standing
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
-ULTRASONIC SEAMING MACHINE OPERATOR Dicyclomine QID PRN
-patient states she recently had stool tested for infection as outpatient which was negative
-patient not agreeable to receiving opiates, reports family hx of addiction
-NSAIDs prn moderate pain
-hematology consulted given splenomegaly: outpatient bone marrow biopsy, also EBV serologies
-Outpatient infectious disease referral/appointment to evaluate potential infectious causes of splenomegaly
Anxiety
-Patient reported anxiety and palpitations from her pain, she requested Ativan on discharge
-Will provide 3 tablets of Ativan 0.5 mg daily prn anxiety
Palpitations/PVCs
-Patient stated today that she will follow-up with supervisor bridges and buildings Dr. Carley Burrell for any medication
Essential HTN
-ULTRASONIC SEAMING MACHINE OPERATOR Clorthalidone
Left Kidney Small Cyst
Diverticulosis
Type 2 Diabetes Mellitus
Asthma
Depression
REED on CPAP
Iron deficiency anemia
Chronic diarrhea
DVT PPx Lovenox subQ
FULL CODE
More than 30 minutes spent in discharge including
Final examination of the patient
Summarizing hospital stay
Instructions for continuing care to all relevant caregivers
Preparation of discharge records, prescriptions, and referral forms
Total time spent (in minutes): 40
Anticipated Discharge: Today
Subjective/Interval History
-
Date of Service: January 18, 2024
Patient was seen and examined. She reported continued pain on the left side of her abdomen, at times palpitations, and anxiety, and diarrhea after eating.
Objective Data
-
Labs:
Laboratory Results
01/18/24
06:08
WBC 8.6
Hgb 10.8 L
Hct 34.0 L
Plt Count 246
Sodium 141
Potassium 4.0
Chloride 105
Carbon Dioxide 26
BUN 10
Creatinine 0.5 L
Glucose 103 H
Calcium 8.8
Total Bilirubin 0.2
AST 15
ALT 15
Alkaline Phosphatase 80
Vital Signs:
Vital Signs
Temp Pulse Resp BP Pulse Ox
98.2 F 89 18 136/79 98
01/18/24 11:54 01/18/24 11:54 01/18/24 11:54 01/18/24 11:54 01/18/24 11:54
I&O
01/17/24 01/18/24 01/19/24
06:59 06:59 06:59
Intake Total 720 / 720 960 / 960 240 / 240
Balance 720 / 720 960 / 960 240 / 240
--- NOTE | 2024-01-18 13:50 | W.DS.TRANS ---
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
-
Discharge Instructions:
Discharge Diagnosis/Procedures Abdominal pain x 6 weeks
Diarrhea x 6 weeks
Gastroesophageal Reflux Disease
Hepatic Steatosis
Mild Splenomegaly on CT Imaging recently
Anxiety
Palpitations/PVCs
Essential HTN
Left Kidney Small Cyst
Diverticulosis
Type 2 Diabetes Mellitus
Asthma
Depression
REED on CPAP
Iron deficiency anemia
Chronic diarrhea
Diet As tolerated,Diabetic, Carb Controlled,Low
Cholesterol,Low Fat
Activity As tolerated
Instructions:
Stand-Alone Forms:
Changes to Home Medications: Yes
Discharge Medications:
DC Medications w/original date entered in [facility]
dexlansoprazole 60 mg capsule,biphase delayed release 60 mg PO BID 12/25/23
cholecalciferol (vitamin D3) 25 mcg (1,000 unit) tablet (Vitamin D3) 25 mcg PO DAILY 12/30/23
fluticasone furoate 100 mcg-vilanterol 25 mcg/dose inhalation powder (Breo Ellipta) 1 inh inhalation R DAILYPRN PRN sob 01/09/24
albuterol sulfate 2.5 mg/3 mL (0.083 %) solution for nebulization 2.5 mg inhalation R Q4HPRN PRN sob 01/16/24
dicyclomine 20 mg tablet 20 mg PO AC 01/16/24
therapeutic multivitamin 1 tab PO DAILY 01/16/24
acetaminophen 500 mg tablet (Tylenol Extra Strength) 1,000 mg (2 x 500 mg) PO Q8HPRN PRN mild pain #0 tabs 01/18/24
lorazepam 0.5 mg tablet (Ativan) 0.5 mg PO DAILY PRN anxiety #3 tabs 01/18/24
Home Medication Changes
Ativan prn anxiety is a new medication
Tylenol changed to Q8H as needed
Pending Results: Yes
Additional Pending Results:
Lab results including immunology and serology results.
Total time spent discharging patient (in min): 40
[2024-01-18] MEDS: MYLICON PO (14:51)
[2024-01-18 23:23] LABS: IgA 292 mg/dl (70-400)
[2024-01-19 17:18] LABS: Endomysial IgA Antibody Titer <1:10 (<1:10)
[2024-01-19 23:06] LABS: EBV-EA (D) Ab IgG 13.4 U/mL (0.0-10.9); EBV-NA IgG 47.2 U/mL (0.0-21.9); EBV-VCA IgM Antibodies <10.0 U/mL (0.0-43.9)
--- NOTE | 2024-01-21 11:47 | W.DCSUMMARY ---
Discharge Summary
Discharge Data
Date of Admission: 01/16/24
Date of Discharge: 01/18/24
Total time spent discharging patient (in min): 40
-
Pending Results: Yes
Additional Pending Results:
Lab results including immunology and serology results.
Hospital Course
38 y/o female with past medical history of obesity, REED with CPAP, GERD, HTN, NIDDM, anxiety/depression, recent ER visits for abdominal pain with recent outpatient work-up with EGD/colo grossly unrevealing presented to the emergency room with
continued abdominal pain. Patient stated pain started about 6 weeks prior, beginning of December 2023. Pain had been worse after eating resulting in significant abdominal bloating/distention and diarrhea. She stated she has had diarrhea up to 5x/day.
She has had severe left upper quadrant pain, more tender to palpation. Patient had an EGD on 12/29 which showed mainly normal findings, H. Pylori negative, pathology from duodenum biopsy showed 'fragments of small intestinal mucosa with focal
increase intraepithelial lymphocytes'. She had a colonoscopy on 01/08 without evidence of microscopic colitis. Patient had MRE study, and together with her other symptoms, there was no clear gastrointestinal etiology to explain her symptoms, although
there could be IBS versus functional pain versus musculoskeletal. It was recommended that patient continue taking Bentyl. Hematology was consulted given her splenomegaly, and they recommended outpatient bone marrow biopsy and they also ordered EBV
testing. Patient was noted to have palpitations/PVCs, but she mentioned she will talk to her outpatient adult probation officer Dr. Carley Burrell about getting possible treatment for that. Patient would need to follow-up closely with outpatient hematology and
infectious disease.
Discharge Plan
-
Patient Disposition: Home (Routine Discharge)
Discharge Diagnosis/Procedures: Abdominal pain x 6 weeks
Diarrhea x 6 weeks
Gastroesophageal Reflux Disease
Hepatic Steatosis
Mild Splenomegaly on CT Imaging recently
Anxiety
Palpitations/PVCs
Essential HTN
Left Kidney Small Cyst
Diverticulosis
Type 2 Diabetes Mellitus
Asthma
Depression
REED on CPAP
Iron deficiency anemia
Chronic diarrhea
Diet: As tolerated, Low Fat, Low Cholesterol and Diabetic, Carb Controlled
Activity: As tolerated
Activity Restrictions/Additional Instructions:
Hospitalist spoke with on-call infectious disease physician and they will inform the [facility] office to set up an appointment with you soon, with whichever provider is available first -- address is [address] [place] [address],
[address], [place] [address]
Please follow-up with all the labwork that was ordered in the hospital.
Referrals:
Brittney Jackson MD [Active] - in less than 1 week (Bone Marrow Biopsy)
Alexander House DO [Active] - in less than 1 week (Needs earliest appointment available with whichever infectious disease provider is available -- reason for appointment is splenomegaly.)
Benji Goldman DO [Family Provider] - in less than 1 week
Carley Burrell MD [Active] - in less than 1 week (Palpitations/PVCs)
Additional Discharge Medication Instructions: Ativan prn anxiety is a new medication
Tylenol changed to Q8H as needed
Prescriptions:
New
lorazepam [Ativan] 0.5 mg tablet
0.5 mg PO DAILY PRN (Reason: anxiety) Qty: 3 0RF
Continued
cholecalciferol (vitamin D3) [Vitamin D3] 25 mcg (1,000 unit) Tablet
25 mcg PO DAILY
dexlansoprazole 60 mg Capsule,Biphase Delayed Releas
60 mg PO BID
fluticasone furoate-vilanterol [Breo Ellipta] 100-25 mcg/dose Blister With Device
1 inh INHALATION R DAILYPRN PRN (Reason: sob)
albuterol sulfate 2.5 mg /3 mL (0.083 %) Solution For Nebulization
2.5 mg INHALATION R Q4HPRN PRN (Reason: sob)
therapeutic multivitamin Tablet
1 tab PO DAILY
dicyclomine 20 mg tablet
20 mg PO AC
Changed
acetaminophen [Tylenol Extra Strength] 500 mg Tablet
1,000 mg PO Q8HPRN PRN (Reason: mild pain ) Qty: 0 0RF
No Action
diclofenac sodium 75 mg tablet,delayed release (DR/EC)
75 mg PO BID Qty: 10 0RF
Discharge Orders:
Discharge Patient (As Directed); Ordered 01/18/24
Ordered By: Angus Treviño
Discharge Date and Time
Discharge Date/Time: 01/18/24 15:18
Print Language: ROMANIAN
[2024-01-21 15:23] LABS: tTG IgA Antibody 5.8 EU/ml (0-19); tTG IgG Antibody 4.9 EU/ml (0-19)
[2024-01-22 00:35] LABS: Pancreatic Elastase, Fecal >800 ug/g (>=100)
[2024-01-22 00:42] LABS: Calprotectin, Fecal 82 ug/g (<=49)
== END 2024-01-18 15:18 | disposition home or self-care (01) | DRG 392 ==
LOC: 3 WEST ACU 05:58
PROVIDERS: Emergency Medicine; Nurse Practitioner Family; ADMITTING PHYSICIAN Student in an Organized Health Care Education/Training Program; ATTENDING PHYSICIAN Hospitalist; CONSULT PHYSICIAN Internal Medicine Hematology & Oncology; EMERGENCY PHYSICIAN Student in an Organized Health Care Education/Training Program; FAMILY PHYSICIAN Family Medicine; OTHER PHYSICIAN Internal Medicine
DX: R10.9 Unspecified abdominal pain (principal); Z87.891 Personal history of nicotine dependence; F41.9 Anxiety disorder, unspecified; F32.A Depression, unspecified; K21.9 Gastro-esophageal reflux disease without esophagitis; E11.9 Type 2 diabetes mellitus without complications; I10 Essential (primary) hypertension; D50.9 Iron deficiency anemia, unspecified; G47.33 Obstructive sleep apnea (adult) (pediatric)
CPT/HCPCS: 72197; 74183; 76700; 80048; 80053; 81003; 81015; 82306; 82653; 82728; 82784; 83516; 83540; 83550; 83605; 83690; 83735; 83993; 84466; 84703; 85025; 85027; 86231; 86663; 86664; 86665; 87086; 94640; 96374; 96375; 99285; A9575

== ENCOUNTER 2024-01-21 00:23 | Emergency (ER) | payer BC, SELFPAY ==
[2024-01-21 00:25] VITALS: BP 185/108
--- NOTE | 2024-01-21 00:39 | ED.GENMED ---
History of Present Illness
<TITA Izquierdo - Last Filed: 01/21/24 04:56>
General
Chief Complaint: Abnormal Lab Value
Source: patient
Exam Limitations: none
Time Seen by Provider: 01/21/24 00:45
Nursing documentation reviewed up to this point in time: agreed with
Travel History
Have you had any contact with someone who has COVID-19?: No
Do you have any symptoms of coronavirus? Fever > 100 degrees, chills, cough, shortness of breath, sore throat, loss of taste or smell, muscle aches, or headache?: No
History of Present Illness
History of Present Illness:
This is a 38 year old female with history of migraines, HTN, GERD, DM, anxiety, depression who presents to the ED with complaint of numbness and tingling b/l lower extremities x1 month. She states her symptoms began to worsen today prompting her to
come in. She also reports LUQ pain and �pain with her spleen.� She reports that her recent ultrasound had findings consistent with mild splenomegaly. She has had diarrhea for the past 3 weeks. She describes the diarrhea as nonbloody watery stools.
No aggravating or relieving factors. She was recently evaluated for similar complaints. She has a hematology appointment 01/26/24 and infectious disease appointment 02/04/24. She denies any nausea or vomiting, lightheadedness, dizziness, headache,
shortness of breath, chest pain.
Past History
<TITA Izquierdo - Last Filed: 01/21/24 04:56>
Past History
ED Past Medical History: GERD, HTN, NIDDM and Psychiatric (Anxiety, Depression)
ED Past Surgical History: Appendectomy, and Other (Myringotomy tubes)
Social History
Tobacco: Former smoker
Alcohol: None
Drug: None
Personal:
Living: with family
Review of Systems
<TITA Izquierdo - Last Filed: 01/21/24 04:56>
Review of Systems
Allergies reviewed?: Yes
All Other Systems: Not applicable
Constitutional: Reports no symptoms
EENT: Reports no symptoms
Respiratory: Reports no symptoms
Cardiac: Reports no symptoms
ABD/GI: Reports abdominal pain (LUQ) and diarrhea
: Reports no symptoms
Musculoskeletal: Reports no symptoms
Skin: Reports no symptoms
Neurological: Reports numbness (Numbness and tingling b/l lower extremities )
Endocrine: Reports no symptoms
Hematologic/Lymphatic: Reports no symptoms
Psychiatric: Reports no symptoms
Phy Exam
<Blanca Thrasher [facility] - Last Filed: 01/21/24 04:56>
General Physical Exam
General Presentation: well appearing and no apparent distress
General Skin: warm and dry
General Habitus: normal
General Mental: alert
General Hydration: appears well hydrated
ENT Exam
ENT Exam: EOMI, pharynx normal, neck supple and normocephalic
Eye Exam
Eye Exam: PERRL, cornea clear and conjunctiva normal
Cardiovascular Exam
Cardiovascular Exam: regular rate/rhythm, no edema, no murmur and normal peripheral pulses
Pulmonary Exam
Pulmonary Exam: lungs clear, no respiratory distress, no rales, no crackles, no rhonchi, no stridor, no wheezing and no cough
Gastrointestinal Exam
Gastrointestinal Exam: normal bowel sounds, soft, no organomegaly, no pulsatile mass and non distended
Palpation: left upper quadrant: Mild tenderness
Auscultation of Abdomen: normal
Neurological Exam
Neurological Exam: alert, oriented x3, no motor deficits and speech normal
Musculoskeletal Exam
Musculoskeletal Exam: full ROM and no edema
Skin Exam
Skin Exam: normal color, warm/dry, no rash and no petechia
Psychiatric Exam
Psychiatric Exam: normal mood/affect
Course
<TITA Izquierdo - Last Filed: 01/21/24 04:56>
Orders/Labs/Results
Orders:
Orders
01/21/24 00:50
Test Result ONCE
01/21/24 01:00
Complete Blood Count/With Diff Urgent
Comprehensive Metabolic Panel Urgent
HCG, Serum Qualitative Screen Urgent
Monotest Urgent
Comment: ADD ON
01/21/24 03:49
Ketorolac [Toradol] 30 mg .ROUTE .STK-MED ONE
01/21/24 03:52
Ketorolac [Toradol] 30 mg IV NOW STA
Abnormal Lab Results
01/21/24
01:00
WBC 11.9 H 10^3/uL
(4.8-10.8)
Hgb 11.2 L g/dL
(12.0-16.0)
Hct 35.0 L %
(37.0-47.0)
MCH 26.2 L pg
(27.0-31.0)
MCHC 32.0 L g/dL
(33.0-37.0)
RDW 14.6 H %
(11.5-14.5)
Abs Immat Gran (auto) 0.1 H 10^3/uL
(0-0.05)
Absolute Neuts (auto) 8.1 H 10^3/uL
(1.4-6.5)
Absolute Monos (auto) 0.9 H 10^3/uL
(0.1-0.6)
Creatinine 0.4 L mg/dL
(0.6-1.0)
Glucose 124 H mg/dl
(70-99)
01/21/24 01:00
01/21/24 01:00
Vital Signs
Initial and Last Documented VS:
Initial Vital Signs
Temp Pulse Resp BP Pulse Ox
98.4 F 98 26 185/108 100
01/21/24 00:25 01/21/24 00:25 01/21/24 00:25 01/21/24 00:25 01/21/24 00:25
Last Documented Vital Signs
Temp Pulse Resp BP Pulse Ox
98.4 F 91 15 111/72 97
01/21/24 00:25 01/21/24 04:30 01/21/24 04:30 01/21/24 04:00 01/21/24 04:30
<Alexander Soler, DO - Last Filed: 01/21/24 04:51>
Orders/Labs/Results
Orders:
Orders
01/21/24 00:50
Test Result ONCE
01/21/24 01:00
Complete Blood Count/With Diff Urgent
Comprehensive Metabolic Panel Urgent
HCG, Serum Qualitative Screen Urgent
Monotest Urgent
Comment: ADD ON
01/21/24 03:49
Ketorolac [Toradol] 30 mg .ROUTE .STK-MED ONE
01/21/24 03:52
Ketorolac [Toradol] 30 mg IV NOW STA
Abnormal Lab Results
01/21/24
01:00
WBC 11.9 H 10^3/uL
(4.8-10.8)
Hgb 11.2 L g/dL
(12.0-16.0)
Hct 35.0 L %
(37.0-47.0)
MCH 26.2 L pg
(27.0-31.0)
MCHC 32.0 L g/dL
(33.0-37.0)
RDW 14.6 H %
(11.5-14.5)
Abs Immat Gran (auto) 0.1 H 10^3/uL
(0-0.05)
Absolute Neuts (auto) 8.1 H 10^3/uL
(1.4-6.5)
Absolute Monos (auto) 0.9 H 10^3/uL
(0.1-0.6)
Creatinine 0.4 L mg/dL
(0.6-1.0)
Glucose 124 H mg/dl
(70-99)
01/21/24 01:00
01/21/24 01:00
Vital Signs
Initial and Last Documented VS:
Initial Vital Signs
Temp Pulse Resp BP Pulse Ox
98.4 F 98 26 185/108 100
01/21/24 00:25 01/21/24 00:25 01/21/24 00:25 01/21/24 00:25 01/21/24 00:25
Last Documented Vital Signs
Temp Pulse Resp BP Pulse Ox
98.4 F 91 15 111/72 97
01/21/24 00:25 01/21/24 04:30 01/21/24 04:30 01/21/24 04:00 01/21/24 04:30
<TITA Izquierdo - Last Filed: 01/21/24 04:56>
*Critical Care Note
Total Time (30-74mins, 75-104mins- exclusive of procedures): Not Applicable
ED Attending Note
<TITA Izquierdo - Last Filed: 01/21/24 04:56>
-
Portions of this chart may have been created with voice recognition software.� Occasional wrong word or��sound alike� substitutions may have occurred due to the inherent limitations of voice recognition software.
<Alexander Soler DO - Last Filed: 01/21/24 04:51>
ED Attending Note
Patient seen and examined by attending physician: Yes
I performed the substantive portion of visit, reviewed & personally made and approve the management plan that is documented in note by myself or LORNA.: Yes
ED Attending Note:
This a pleasant 38-year-old female who presents with an extensive history of abdominal pain. She has been admitted several times and has been to the emergency department multiple times this past month. She states that her symptoms began 1 month
ago and have progressively worsened throughout her time. She was recently discharged from the last admission and went home. She states that her pain came back in the left upper quadrant and she feels that she has pain with her spleen. She did
have an ultrasound which showed mild splenomegaly for which she is still concerned. She saw hematology and infectious disease while in the hospital. She has follow-up appointments with them in the next several months. Patient states that she was
notified today that her EBV testing came back positive for subacute EBV infection. Since she has an appointment on February 03 to see infectious disease, she came in here for evaluation. Patient reports no chest pain or shortness of breath. Patient
was seen in conjunction with the PA student. I have reviewed and agree with the history and treatment plan presented. On my independent physical exam, patient is awake, alert, and oriented x3, moderate acute distress tearful. Heart is regular
rate and rhythm. Lungs are clear to auscultation bilaterally. Is soft obese and nontender. It appears to be slightly distended without rigidity or guarding.
Plan: Since NSAIDs worked in the hospital patient will get a prescription for a small amount of NSAIDs. She will be discharged to follow-up with GI, hematology, and infectious disease.
I did discuss return to ER instructions with patient and family member. They were tearful she expressed good understanding of discharge instructions.
Discharge Plan
Departure
Patient Disposition: Home (Routine Discharge)
Date of Disposition: 01/21/24
Time of Disposition: 04:46
Patient with high blood pressure during this ER visit?: Yes
Discharge Problem:
Intractable abdominal pain
Instructions: Abdominal Pain, BLOOD PRESSURE
Prescriptions:
New
diclofenac sodium 75 mg tablet,delayed release (DR/EC)
75 mg PO BID Qty: 10 0RF
No Action
cholecalciferol (vitamin D3) [Vitamin D3] 25 mcg (1,000 unit) Tablet
25 mcg PO DAILY
dexlansoprazole 60 mg Capsule,Biphase Delayed Releas
60 mg PO BID
fluticasone furoate-vilanterol [Breo Ellipta] 100-25 mcg/dose Blister With Device
1 inh INHALATION R DAILYPRN PRN (Reason: sob)
albuterol sulfate 2.5 mg /3 mL (0.083 %) Solution For Nebulization
2.5 mg INHALATION R Q4HPRN PRN (Reason: sob)
therapeutic multivitamin Tablet
1 tab PO DAILY
dicyclomine 20 mg tablet
20 mg PO AC
lorazepam [Ativan] 0.5 mg tablet
0.5 mg PO DAILY PRN (Reason: anxiety) Qty: 3 0RF
acetaminophen [Tylenol Extra Strength] 500 mg Tablet
1,000 mg PO Q8HPRN PRN (Reason: mild pain ) Qty: 0 0RF
Referrals:
[facility] [Outside]
[facility],PHYSICIAN [Active] -
Activity Restrictions/Additional Instructions:
It was a pleasure meeting you and taking part in your care. We hope for your continued healing and wellness.
Please read discharge instructions in their entirety. However, they are for general education and may not describe your exact diagnosis at discharge. Information on your ER visit and medical conditions were discussed with you along with appropriate
follow up information...
If indicated, please take your medications as instructed and indicated on discharge paperwork.
Please schedule a follow up appointment as directed. Call to schedule an appointment
Please return to the emergency department with ANY change in, persisting, or worsening of symptoms. If any of your symptoms do not improve, or persist, or become more severe within 6-12 hours, please return to the emergency department for further
care.
Please return to the emergency department if you develop a headache, neck pain/stiffness, fever greater than 100.4F, chest pain, shortness of breath, persistent nausea, vomiting, slurred speech, difficulty walking, numbness/tingling, weakness, signs
of infection or any other symptoms that are worrisome to you.
If you have any questions or concerns please do not hesitate to call the Hospital at or E-mail me directly at [email or web address]
Interventions
Interventions:
*Risk Screen - Suicide Last Done: 01/21/24 00:25
*General Assessment Last Done: 01/21/24 00:33
*Neglect/Abuse Screening Last Done: 01/21/24 00:25
ED- Fall Risk Assessment Last Done: 01/21/24 00:33
*ED COVID-19 Vaccine History Last Done: 01/21/24 00:33
ED- Neurological Assessment Last Done: 01/21/24 00:33
Discharge Date and Time
Print Language: CYMRAES
[2024-01-21 00:40] VITALS: BP 141/92
[2024-01-21 01:00] VITALS: BP 138/83
[2024-01-21 02:00] VITALS: BP 112/61
[2024-01-21 03:01] VITALS: BP 113/72
[2024-01-21 03:02] LABS: % Basophils 0.5 % (0-2); % Eosinophils 1.6 % (0-6); % Immature Granulocytes 0.5 % (0-0.5); % Lymphocytes 21.4 % (20.5-51.1); % Monocytes 7.8 % (1.7-9.3); % Neutrophils 68.2 % (42.2-75.2); Absolute Basophils 0.1 10^3/uL (0-0.2); Absolute Eosinophils 0.2 10^3/uL (0-0.7); Absolute Immature Granulocytes 0.1 10^3/uL (0-0.05); Absolute Lymphocytes 2.6 10^3/uL (1.2-3.4); Absolute Monocytes 0.9 10^3/uL (0.1-0.6); Absolute Neutrophils 8.1 10^3/uL (1.4-6.5); Hemoglobin 11.2 g/dL (12.0-16.0); Mean Corpuscular Hgb 26.2 pg (27.0-31.0); Mean Platelet Volume 9.4 fL (7.4-10.4); Nucleated Red Blood Cells % 0 %; Platelet Count 283 10^3/uL (130-400); Red Blood Cell Count 4.27 10^6/uL (4.20-5.40); Red Cell Dist. Width 14.6 % (11.5-14.5); White Blood Cell Count 11.9 10^3/uL (4.8-10.8)
--- NOTE | 2024-01-21 03:06 | DOWNTIME ---
There was a [employer] Client Card Grinder Helper Downtime on 01/20/2024 from 0100 to 01/21/2024 at 0300. Downtime documentation of patient's care, including medication administrations, has been reconciled in the electronic record per guidelines. Refer to the
patient's paper chart under the miscellaneous tab to see printed paper medication records and downtime forms.
[2024-01-21 03:17] LABS: HCG, Serum Qualitative Screen Negative
[2024-01-21 03:20] LABS: Monotest Negative (Negative)
[2024-01-21 03:22] LABS: ALT (SGPT) 24 U/L (0-35); AST (SGOT) 21 U/L (14-36); Albumin 4.2 g/dl (3.5-5.0); Alkaline Phosphatase 93 U/L (38-126); Blood Urea Nitrogen 12 mg/dl (7-17); Calcium 9.5 mg/dl (8.4-10.2); Carbon Dioxide 22 mmol/L (22-30); Chloride 107 mmol/L (98-107); Glucose 124 mg/dl (70-99); Potassium 4.2 mmol/L (3.5-5.1); Sodium 141 mmol/L (135-145); Total Bilirubin 0.2 mg/dl (0.2-1.3); Total Protein 6.9 g/dl (6.3-8.2); eGFR > 60.00
[2024-01-21] MEDS: TORADOL 30 MG IV (03:52)
[2024-01-21 04:00] VITALS: BP 111/72
== END 2024-01-21 05:00 | disposition home or self-care (01) ==
LOC: EMR 00:23
PROVIDERS: EMERGENCY PHYSICIAN Student in an Organized Health Care Education/Training Program; FAMILY PHYSICIAN Family Medicine
DX: R10.12 Left upper quadrant pain (principal); R10.11 Right upper quadrant pain; R19.7 Diarrhea, unspecified; R20.0 Anesthesia of skin; R20.2 Paresthesia of skin; M25.512 Pain in left shoulder; M25.511 Pain in right shoulder; R06.2 Wheezing; G43.909 Migraine, unspecified, not intractable, without status migrainosus; B27.00 Gammaherpesviral mononucleosis without complication; R16.1 Splenomegaly, not elsewhere classified; I10 Essential (primary) hypertension; K21.9 Gastro-esophageal reflux disease without esophagitis; E11.9 Type 2 diabetes mellitus without complications; F41.9 Anxiety disorder, unspecified; F32.A Depression, unspecified; Z87.891 Personal history of nicotine dependence; Z88.0 Allergy status to penicillin
CPT/HCPCS: 99284; 96374; 80053; 84703; 85025; 86308

== ENCOUNTER → 2024-02-10 06:45 | Outpatient (REF) | payer BC, SELFPAY ==
[2024-02-10 07:25] VITALS: BP 167/92; BP_SYST 77
[2024-02-10 07:25] LABS: % Basophils 0.5 % (0-2); % Eosinophils 2.3 % (0-6); % Immature Granulocytes 0.9 % (0-0.5); % Lymphocytes 22.1 % (20.5-51.1); % Monocytes 7.8 % (1.7-9.3); % Neutrophils 66.4 % (42.2-75.2); Absolute Basophils 0.1 10^3/uL (0-0.2); Absolute Eosinophils 0.3 10^3/uL (0-0.7); Absolute Immature Granulocytes 0.1 10^3/uL (0-0.05); Absolute Lymphocytes 2.4 10^3/uL (1.2-3.4); Absolute Monocytes 0.8 10^3/uL (0.1-0.6); Absolute Neutrophils 7.1 10^3/uL (1.4-6.5); Hematocrit 35.3 % (37.0-47.0); Hemoglobin 11.4 g/dL (12.0-16.0); Mean Corp Hgb Conc. 32.3 g/dL (33.0-37.0); Mean Corpuscular Hgb 26.4 pg (27.0-31.0); Mean Corpuscular Volume 81.7 fL (81.0-99.0); Mean Platelet Volume 9.3 fL (7.4-10.4); Nucleated Red Blood Cells % 0 %; Platelet Count 287 10^3/uL (130-400); Red Blood Cell Count 4.32 10^6/uL (4.20-5.40); Red Cell Dist. Width 14.5 % (11.5-14.5); White Blood Cell Count 10.7 10^3/uL (4.8-10.8)
[2024-02-10 07:50] LABS: INR 0.93; PT 12.2 Sec (11.4-14.6)
[2024-02-10] MEDS: ATIVAN 0.5 MG IV (08:11)
[2024-02-10] MEDS: NSS (PRESERVATIVE FREE) 0.25 ML IV (08:13)
[2024-02-10] MEDS: FLUSH (NSS) 1 FLUSH IV (08:14)
[2024-02-10 09:29] VITALS: BP 154/88
== END ==
LOC: RADI 06:45
PROVIDERS: ATTENDING PHYSICIAN Internal Medicine Hematology & Oncology; FAMILY PHYSICIAN Family Medicine
DX: R16.1 Splenomegaly, not elsewhere classified (principal); Z01.812 Encounter for preprocedural laboratory examination; Z01.818 Encounter for other preprocedural examination; R79.9 Abnormal finding of blood chemistry, unspecified
CPT/HCPCS: 88305; 88311; 88312; 36415; 38222; 77012; 85025; 85610; 88313

== ENCOUNTER 2024-04-01 06:40 | Day surgery (SDC) | payer BC, SELFPAY ==
[2024-04-01 09:56] VITALS: BP 136/78; BMI 53.0
[2024-04-01 11:46] VITALS: BP 132/66
[2024-04-01 12:00] VITALS: BP 118/77
== END 2024-04-01 12:17 | disposition home or self-care (01) ==
LOC: GI 06:40
PROVIDERS: ATTENDING PHYSICIAN Internal Medicine Gastroenterology
DX: K22.89 Other specified disease of esophagus (principal); K22.2 Esophageal obstruction
CPT/HCPCS: 43259